=== PATIENT | female | born 1940 | race Caucasian/White ===

== ENCOUNTER 2020-08-29 10:13 | Emergency (ER) | payer OTHER ==
[2020-08-29 10:21] VITALS: BP 168/86; PULSE 60; TEMP 98.7; BMI 24.2
[2020-08-29] MEDS ORDERED: ACETAMINOPHEN 500 MG TABLET (FP) PO ONE (11:24)
[2020-08-29] MEDS ORDERED: ACETAMINOPHEN 325 MG TABLET (FP) ONE (11:50)
[2020-08-29 12:28] LABS: BASO % 0.4 % (0-2.0); EOS % 0.1 % (0-4.5); HEMATOCRIT 38.6 % (32.4-45.2); HEMOGLOBIN 13.3 GM/dL (10.7-15.3); LYMPH % 12.6 % (8-40); MCH 29.1 pg (25.7-33.7); MCHC 34.3 g/dl (32.0-36.0); MEAN CELL VOLUME 84.7 fl (80-96); MEAN PLT VOLUME 10.1 fl (7.5-11.1); MONO % 4.3 % (3.8-10.2); NEUT % 82.6 % (42.8-82.8); PLATELET COUNT 126 K/MM3 (134-434); RBC 4.56 M/mm3 (3.60-5.2); RDW 13.4 % (11.6-15.6); WHITE BLOOD COUNT 7.2 K/mm3 (4.0-10.0)
[2020-08-29 12:31] LABS: EPI CELLS 9 /uL (0-25.1); HYALINE CASTS 0 /uL (0-3.1); URINE APPEARANCE CLEAR; URINE BACTERIA 87 /uL (0-1359); URINE BILIRUBIN NEGATIVE (NEGATIVE); URINE COLOR YELLOW; URINE GLUCOSE (UA) NEGATIVE (NEGATIVE); URINE KETONE NEGATIVE (NEGATIVE); URINE LEUK ESTERASE TRACE (NEGATIVE); URINE NITRITE NEGATIVE (NEGATIVE); URINE PROTEIN NEGATIVE (NEGATIVE); URINE RBC 8 /uL (0-23.9); URINE UROBILINOGEN 0.2 mg/dL (0.2-1.0); URINE WBC 6 /uL (0-25.8)
[2020-08-29 12:55] LABS: CHLORIDE 100 mmol/L (98-107); SODIUM 134 mmol/L (136-145)
[2020-08-29 12:58] LABS: ANION GAP 9 MMOL/L (8-16); BLOOD UREA NITROGEN 21.4 mg/dL (7-18); CALCIUM 9.2 mg/dL (8.5-10.1); CO2 25 mmol/L (21-32)
[2020-08-29 12:59] LABS: ALBUMIN 4.2 g/dl (3.4-5.0); GLUCOSE,RANDOM 113 mg/dL (74-106); MAGNESIUM 1.8 mg/dL (1.8-2.4)
[2020-08-29 13:01] LABS: CREATININE 1.2 mg/dL (0.55-1.3)
[2020-08-29 13:02] LABS: SGOT/AST 31 U/L (15-37); SGPT/ALT 25 U/L (13-61)
[2020-08-29 13:03] LABS: TOT PROT 7.4 g/dl (6.4-8.2)
[2020-08-29 13:04] LABS: ALK PHOS 71 U/L (45-117)
[2020-08-29] MEDS ORDERED: SODIUM CHLORIDE 0.9% 500 ML INFUS.BAG IV ONE (13:32)
== END 2020-08-29 15:38 | disposition home or self-care (01) ==
LOC: JER 10:13
DX: R53.81 Other malaise (principal)
CPT/HCPCS: 36415; 71045-TC-FY; 80053; 81003; 82550; 82553; 82607; 82746; 83735; 84439; 84443; 84480; 84484; 85025; 87086; 93005; 93010; 99285-25; C9803; U0003; U0005

== ENCOUNTER 2021-10-03 12:50 | Emergency (ER) | payer OTHER ==
[2021-10-03] MEDS ORDERED: BEBTELOVIMAB (EUA) 175 MG/2 ML VIAL IVPUSH ONE (13:26)
[2021-10-03 14:48] VITALS: BMI 25.8
[2021-10-03 15:54] LABS: PROTHROMBIN TIME (PATIENT) 55.5 SEC (9.7-13.0)
[2021-10-03 16:52] LABS: INR 4.75 (0.83-1.09)
[2021-10-03 18:05] VITALS: BP 157/80; PULSE 77; TEMP 97.6
== END 2021-10-03 19:45 | disposition home or self-care (01) ==
LOC: JER 12:50
DX: U07.1 COVID-19 (principal)
CPT/HCPCS: 36415; 71046-TC-FY; 83880; 85610; 99284-25; M0222; Q0222

== ENCOUNTER 2023-09-27 18:01 | Inpatient (IN) | payer OTHER ==
[2023-09-27] MEDS ORDERED: KETOROLAC TROMETHAMINE 15 MG/ML VIAL ONE (19:52)
[2023-09-27] MEDS: KETOROLAC TROMETHAMINE 15 MG/ML VIAL IVPUSH ONE (19:54)
[2023-09-27 20:07] LABS: HEMATOCRIT 41.8 % (32.4-45.2); HEMOGLOBIN 14.2 GM/dL (10.7-15.3); MCH 29.2 pg (25.7-33.7); MCHC 34.1 g/dl (32.0-36.0); MEAN CELL VOLUME 85.6 fl (80-96); MEAN PLT VOLUME 8.7 fl (7.5-11.1); PLATELET COUNT 151 10^3/uL (134-434); RBC 4.88 M/mm3 (3.60-5.2); RDW 13.8 % (11.6-15.6); WHITE BLOOD COUNT 5.6 K/mm3 (4.0-10.0)
[2023-09-27 20:08] LABS: INR 3.74 (0.83-1.09); PROTHROMBIN TIME (PATIENT) 40.7 SEC (9.7-13.0)
[2023-09-27 20:11] LABS: ACTIVATED PTT 49.5 SECONDS (25.2-36.5)
[2023-09-27 20:17] LABS: CALCIUM 10.5 mg/dL (8.5-10.1); POTASSIUM 4.3 mmol/L (3.5-5.1)
[2023-09-27 20:18] LABS: BLOOD UREA NITROGEN 32.8 mg/dL (7-18)
[2023-09-27 20:27] LABS: CREATININE 1.5 mg/dL (0.55-1.3)
[2023-09-27 20:53] LABS: ERYTHROCYTE SEDIMENTATION RATE 50 mm/hr (0-30)
[2023-09-27] MEDS ORDERED: oxyCODONE HCL 5 MG TABLET ONE (21:32)
[2023-09-27] MEDS: oxyCODONE HCL 5 MG TABLET PO ONE (21:37)
[2023-09-27] MEDS ORDERED: DOCUSATE SODIUM 100 MG CAPSULE (FP) PO PRN (22:20)
[2023-09-28] MEDS: oxyCODONE HCL 5 MG TABLET PO PRN (03:19)
[2023-09-28] MEDS: ACETAMINOPHEN 1000 MG/100 ML BAG IVPB PRN (06:48)
[2023-09-28] MEDS: morphine SO4 SUSTAINED ACTING 30 MG TABLET.SA PO ONE (06:49)
[2023-09-28] MEDS: LEVOTHYROXINE NA 88 MCG TABLET (FP) PO SCH (06:50)
[2023-09-28 09:52] LABS: BASO % 0.4 % (0-2.0); EOS % 0.1 % (0-4.5); HEMATOCRIT 41.4 % (32.4-45.2); LYMPH % 16.1 % (8-40); MCHC 33.7 g/dl (32.0-36.0); MEAN PLT VOLUME 8.9 fl (7.5-11.1); NEUT % 66.4 % (42.8-82.8); PLATELET COUNT 154 10^3/uL (134-434); RBC 4.82 M/mm3 (3.60-5.2); RDW 13.7 % (11.6-15.6)
[2023-09-28] MEDS: FUROSEMIDE 20 MG TABLET (FP) PO SCH (09:55)
[2023-09-28] MEDS: PREGABALIN 100 MG CAPSULE PO SCH (09:55)
[2023-09-28] MEDS: VALSARTAN 160 MG TABLET PO SCH (09:55)
[2023-09-28] MEDS: amLODIPine BESYLATE 5 MG TABLET (FP) PO SCH (09:55)
[2023-09-28] MEDS ORDERED: morphine SO4 SUSTAINED ACTING 30 MG TABLET.SA PO SCH (10:00)
[2023-09-28 10:50] LABS: POTASSIUM 4.3 mmol/L (3.5-5.1)
[2023-09-28 10:53] LABS: ALBUMIN 3.4 g/dl (3.4-5.0); BLOOD UREA NITROGEN 31.4 mg/dL (7-18); CALCIUM 10.5 mg/dL (8.5-10.1)
[2023-09-28 10:56] LABS: CREATININE 1.4 mg/dL (0.55-1.3); PHOSPHOROUS 2.4 mg/dL (2.5-4.9)
[2023-09-28 10:57] LABS: BILIRUBIN,TOTAL 0.6 mg/dL (0.2-1); TOT PROT 6.6 g/dl (6.4-8.2)
[2023-09-28] MEDS: REMDESIVIR 200 MG in SODIUM CHLORIDE 250 ML IVPB ONE (17:47)
[2023-09-28 17:55] LABS: PH,URINE 5.5 (5.0-8.0); URINE APPEARANCE CLEAR; URINE BILIRUBIN NEGATIVE (NEGATIVE); URINE COLOR YELLOW; URINE GLUCOSE (UA) NEGATIVE (NEGATIVE); URINE KETONE TRACE (NEGATIVE); URINE LEUK ESTERASE NEGATIVE (NEGATIVE); URINE NITRITE NEGATIVE (NEGATIVE); URINE PROTEIN TRACE (NEGATIVE); URINE UROBILINOGEN 0.2 mg/dL (0.2-1.0)
[2023-09-28] MEDS: ATORVASTATIN CA 10 MG TABLET (FP) PO SCH (21:32)
[2023-09-28] MEDS: PRAMIPEXOLE DIHYDROCHLORIDE 0.5 MG TABLET PO SCH (21:32)
[2023-09-28] MEDS: morphine SO4 SUSTAINED ACTING 30 MG TABLET.SA PO SCH (21:33)
[2023-09-29] MEDS: LEVOTHYROXINE NA 100 MCG TABLET (FP) PO SCH (06:11)
[2023-09-29 10:34] LABS: PROTHROMBIN TIME (PATIENT) 46.5 SEC (9.7-13.0)
[2023-09-29 11:03] LABS: INR 4.29 (0.83-1.09)
[2023-09-29] MEDS: DEXAMETHASONE SOD PHOSPHATE 10 MG/1 ML VIAL IVPUSH SCH (15:21)
[2023-09-29] MEDS: REMDESIVIR 200 MG in SODIUM CHLORIDE 250 ML IVPB ONE (16:22)
[2023-09-29] MEDS: WARFARIN NA 2 MG TABLET PO SCH (17:22)
[2023-09-30 10:00] LABS: INR 1.97 (0.83-1.09); PROTHROMBIN TIME (PATIENT) 21.8 SEC (9.7-13.0)
[2023-09-30] MEDS: VALSARTAN 160 MG TABLET PO SCH (11:06)
[2023-09-30] MEDS: amLODIPine BESYLATE 5 MG TABLET (FP) PO SCH (11:07)
[2023-09-30] MEDS: REMDESIVIR 100 MG in SODIUM CHLORIDE 250 ML IVPB SCH (15:38)
[2023-10-01 08:40] LABS: INR 1.6 (0.83-1.09); PROTHROMBIN TIME (PATIENT) 17.8 SEC (9.7-13.0)
[2023-10-02 09:15] LABS: INR 1.74 (0.83-1.09); PROTHROMBIN TIME (PATIENT) 19.4 SEC (9.7-13.0)
[2023-10-03 10:24] LABS: INR 1.97 (0.83-1.09); PROTHROMBIN TIME (PATIENT) 22.2 SEC (9.7-13.0)
[2023-10-04 09:20] LABS: INR 2.55 (0.83-1.09)
[2023-10-04 10:25] LABS: ALBUMIN 2.9 g/dl (3.4-5.0); ANION GAP 5 mmol/L (4-13); BILIRUBIN,TOTAL 0.4 mg/dL (0.2-1); BLOOD UREA NITROGEN 73.1 mg/dL (7-18); CALCIUM 10.8 mg/dL (8.5-10.1); CHLORIDE 109 mmol/L (98-107); CO2 21 mmol/L (21-32); CREATININE 1.3 mg/dL (0.55-1.3); GLUCOSE,RANDOM 141 mg/dL (74-106); POTASSIUM 6.6 mmol/L (3.5-5.1); SGOT/AST 23 U/L (15-37); SGPT/ALT 38 U/L (13-61); SODIUM 136 mmol/L (136-145); TOT PROT 6.1 g/dl (6.4-8.2)
[2023-10-04 10:39] LABS: ALK PHOS 92 U/L (45-117)
[2023-10-04] MEDS: SODIUM ZIRCONIUM CYCLOSILICATE (LOKELMA) 5 GM PACKET PO SCH (12:12)
[2023-10-04 13:26] LABS: POTASSIUM 5.7 mmol/L (3.5-5.1)
[2023-10-04 13:27] LABS: BLOOD UREA NITROGEN 71.7 mg/dL (7-18); CALCIUM 11.2 mg/dL (8.5-10.1)
[2023-10-04 13:31] LABS: CREATININE 1.4 mg/dL (0.55-1.3)
[2023-10-05] MEDS: SODIUM CHLORIDE 0.45% 1,000 ML IV SCH ×2 (07:10→21:10)
[2023-10-05] MEDS: VALSARTAN 160 MG TABLET PO SCH (09:47)
[2023-10-05] MEDS: SODIUM ZIRCONIUM CYCLOSILICATE (LOKELMA) 5 GM PACKET PO SCH ×2 (09:48→21:12)
[2023-10-05 09:50] LABS: ALBUMIN 2.9 g/dl (3.4-5.0); BLOOD UREA NITROGEN 74.4 mg/dL (7-18); CALCIUM 10.9 mg/dL (8.5-10.1); POTASSIUM 5.9 mmol/L (3.5-5.1)
[2023-10-05 09:51] LABS: CREATININE 1.3 mg/dL (0.55-1.3)
[2023-10-05 09:55] LABS: BILIRUBIN,TOTAL 0.6 mg/dL (0.2-1)
[2023-10-05 13:24] LABS: POTASSIUM 5.8 mmol/L (3.5-5.1)
[2023-10-05 13:26] LABS: BLOOD UREA NITROGEN 71.5 mg/dL (7-18)
[2023-10-05 13:30] LABS: CREATININE 1.3 mg/dL (0.55-1.3)
[2023-10-06 10:43] LABS: BLOOD UREA NITROGEN 77.1 mg/dL (7-18); CALCIUM 10.4 mg/dL (8.5-10.1)
[2023-10-06 10:48] LABS: CREATININE 1.3 mg/dL (0.55-1.3)
[2023-10-06 12:14] LABS: INR 2.85 (0.83-1.09); PROTHROMBIN TIME (PATIENT) 31.2 SEC (9.7-13.0)
[2023-10-06 12:19] LABS: HEMATOCRIT 46.5 % (32.4-45.2); HEMOGLOBIN 15.3 GM/dL (10.7-15.3); MCH 28.2 pg (25.7-33.7); MEAN CELL VOLUME 85.5 fl (80-96); MEAN PLT VOLUME 8.5 fl (7.5-11.1); PLATELET COUNT 407 10^3/uL (134-434); RBC 5.44 M/mm3 (3.60-5.2); RDW 14.5 % (11.6-15.6); WHITE BLOOD COUNT 23.2 K/mm3 (4.0-10.0)
[2023-10-06] MEDS ORDERED: DOCUSATE SODIUM 100 MG CAPSULE (FP) PO PRN (13:16)
[2023-10-06] MEDS: SODIUM CHLORIDE 1,000 ML IV STA (14:42)
[2023-10-06] MEDS: DEXAMETHASONE SOD PHOSPHATE 10 MG/1 ML VIAL IVPUSH SCH (16:40)
[2023-10-06] MEDS: oxyCODONE HCL 5 MG TABLET PO PRN (16:41)
[2023-10-06] MEDS: CHLORHEXIDINE GLUCONATE 4% CLEANSER FOR DECOLONIZATION TP SCH (21:57)
[2023-10-06] MEDS: MUPIROCIN 2% TOPICAL OINTMENT FOR DECOLONIZATION NS SCH (21:57)
[2023-10-06] MEDS: PRAMIPEXOLE DIHYDROCHLORIDE 0.25 MG TABLET PO SCH (21:57)
[2023-10-06] MEDS: ATORVASTATIN CA 10 MG TABLET (FP) PO SCH (22:20)
[2023-10-06] MEDS: morphine SO4 SUSTAINED ACTING 15 MG TABLET.SA PO SCH (22:20)
[2023-10-07] MEDS: LEVOTHYROXINE NA 100 MCG TABLET (FP) PO SCH (06:30)
[2023-10-07 07:13] LABS: HEMATOCRIT 41.4 % (32.4-45.2); HEMOGLOBIN 13.5 GM/dL (10.7-15.3); MCH 28.3 pg (25.7-33.7); MCHC 32.7 g/dl (32.0-36.0); MEAN CELL VOLUME 86.5 fl (80-96); MEAN PLT VOLUME 8.3 fl (7.5-11.1); PLATELET COUNT 314 10^3/uL (134-434); RBC 4.78 M/mm3 (3.60-5.2); RDW 13.8 % (11.6-15.6)
[2023-10-07 07:15] LABS: INR 2.9 (0.83-1.09); PROTHROMBIN TIME (PATIENT) 31.8 SEC (9.7-13.0)
[2023-10-07 07:27] LABS: POTASSIUM 5.6 mmol/L (3.5-5.1)
[2023-10-07 07:31] LABS: CALCIUM 10.1 mg/dL (8.5-10.1)
[2023-10-07 07:33] LABS: ALBUMIN 2.9 g/dl (3.4-5.0); BLOOD UREA NITROGEN 90.1 mg/dL (7-18); MAGNESIUM 2.5 mg/dL (1.8-2.4)
[2023-10-07 07:34] LABS: PHOSPHOROUS 4.3 mg/dL (2.5-4.9)
[2023-10-07 07:35] LABS: CREATININE 1.6 mg/dL (0.55-1.3)
[2023-10-07 07:36] LABS: BILIRUBIN,TOTAL 0.7 mg/dL (0.2-1); TOT PROT 6.1 g/dl (6.4-8.2)
[2023-10-07] MEDS ORDERED: CALCIUM GLUCONATE 10% - 1,000 MG/10 ML VIAL ONE (08:12)
[2023-10-07] MEDS ORDERED: INSULIN REGULAR HUMAN 100 UNITS/ML *VIAL ONE (08:12)
[2023-10-07] MEDS ORDERED: DEXTROSE 50%-WATER 25 GM/50 ML DISP.SYRIN ONE (08:13)
[2023-10-07] MEDS: INSULIN REGULAR HUMAN 100 UNITS/ML *VIAL IVPUSH ONE (08:20)
[2023-10-07] MEDS: CALCIUM GLUCONATE 10% - 1,000 MG/10 ML VIAL IVPUSH ONE (08:20)
[2023-10-07] MEDS: DEXTROSE 50%-WATER 25 GM/50 ML DISP.SYRIN IVPUSH ONE (08:20)
[2023-10-07 08:58] LABS: ANISOCYTOSIS 0; HELMET CELLS 0; HOWELL-JOLLY BODIES 0; MACROCYTOSIS 0; OVALOCYTE 0; ROULEAU 0; SICKELED CELLS 0; TARGET CELLS 0; TEAR DROP CELLS 0; TOXIC GRANULATION 0
[2023-10-07] MEDS: SODIUM ZIRCONIUM CYCLOSILICATE (LOKELMA) 5 GM PACKET PO SCH (09:42)
[2023-10-07] MEDS: amLODIPine BESYLATE 5 MG TABLET (FP) PO SCH (09:44)
[2023-10-07] MEDS ORDERED: SODIUM ZIRCONIUM CYCLOSILICATE (LOKELMA) 5 GM PACKET PO SCH (10:00)
[2023-10-07] MEDS: POLYETHYLENE GLYCOL (HEALTHYLAX) 3350 17 GM PACKET PO SCH (12:07)
[2023-10-07 12:59] LABS: POTASSIUM 5.1 mmol/L (3.5-5.1)
[2023-10-07 13:01] LABS: ALBUMIN 2.6 g/dl (3.4-5.0); CALCIUM 10.8 mg/dL (8.5-10.1)
[2023-10-07 13:03] LABS: BLOOD UREA NITROGEN 87.6 mg/dL (7-18)
[2023-10-07 13:05] LABS: CREATININE 1.3 mg/dL (0.55-1.3)
[2023-10-07 13:06] LABS: BILIRUBIN,TOTAL 0.7 mg/dL (0.2-1); TOT PROT 5.7 g/dl (6.4-8.2)
[2023-10-07] MEDS: SENNOSIDES/DOCUSATE COMBO (SENNA PLUS) TABLET (UD) PO SCH (21:24)
[2023-10-08 08:21] LABS: BASO % 0.1 % (0-2.0); HEMATOCRIT 37.9 % (32.4-45.2); HEMOGLOBIN 12.9 GM/dL (10.7-15.3); LYMPH % 3.5 % (8-40); MCHC 34.1 g/dl (32.0-36.0); MEAN CELL VOLUME 84.9 fl (80-96); MEAN PLT VOLUME 8.7 fl (7.5-11.1); MONO % 10.4 % (3.8-10.2); PLATELET COUNT 305 10^3/uL (134-434); RBC 4.46 M/mm3 (3.60-5.2); RDW 14.3 % (11.6-15.6); WHITE BLOOD COUNT 13.7 K/mm3 (4.0-10.0)
[2023-10-08 09:13] LABS: POTASSIUM 5.2 mmol/L (3.5-5.1)
[2023-10-08 09:23] LABS: ALBUMIN 2.8 g/dl (3.4-5.0); BILIRUBIN,TOTAL 0.9 mg/dL (0.2-1); BLOOD UREA NITROGEN 95.5 mg/dL (7-18); CALCIUM 10.7 mg/dL (8.5-10.1); CREATININE 1.6 mg/dL (0.55-1.3); MAGNESIUM 2.6 mg/dL (1.8-2.4); PHOSPHOROUS 4.1 mg/dL (2.5-4.9); TOT PROT 5.7 g/dl (6.4-8.2)
[2023-10-09 07:08] LABS: POTASSIUM 4.9 mmol/L (3.5-5.1)
[2023-10-09 07:12] LABS: ALBUMIN 3.2 g/dl (3.4-5.0)
[2023-10-09 07:15] LABS: CREATININE 1.5 mg/dL (0.55-1.3)
[2023-10-09 07:16] LABS: TOT PROT 6.4 g/dl (6.4-8.2)
[2023-10-09 08:04] LABS: BASO % 0.2 % (0-2.0); HEMATOCRIT 40.9 % (32.4-45.2); HEMOGLOBIN 13.7 GM/dL (10.7-15.3); LYMPH % 3.2 % (8-40); MCH 28.8 pg (25.7-33.7); MCHC 33.5 g/dl (32.0-36.0); MEAN CELL VOLUME 86.2 fl (80-96); MEAN PLT VOLUME 9.1 fl (7.5-11.1); MONO % 8.3 % (3.8-10.2); NEUT % 88.3 % (42.8-82.8); PLATELET COUNT 325 10^3/uL (134-434); RBC 4.75 M/mm3 (3.60-5.2); RDW 14.3 % (11.6-15.6); WHITE BLOOD COUNT 13.8 K/mm3 (4.0-10.0)
[2023-10-09] MEDS: ENOXAPARIN NA (PORCINE) 80 MG/0.8 ML DISP.SYRIN SQ SCH ×2 (10:17→10:21)
[2023-10-09] MEDS ORDERED: PHYTONADIONE 10 MG/1 ML AMP ONE (14:28)
[2023-10-09] MEDS: PHYTONADIONE 10 MG/1 ML AMP IVPB STA (14:34)
[2023-10-09] MEDS: DESMOPRESSIN ACETATE 30 MCG in SODIUM CHLORIDE 50 ML IVPB ONE (15:27)
[2023-10-09 18:41] LABS: HEMATOCRIT 37.6 % (32.4-45.2); HEMOGLOBIN 12.3 GM/dL (10.7-15.3); MCH 28.6 pg (25.7-33.7); MCHC 32.7 g/dl (32.0-36.0); MEAN CELL VOLUME 87.5 fl (80-96); MEAN PLT VOLUME 9.8 fl (7.5-11.1); PLATELET COUNT 347 10^3/uL (134-434); RDW 14.1 % (11.6-15.6); WHITE BLOOD COUNT 29.9 K/mm3 (4.0-10.0)
[2023-10-09] MEDS: SODIUM CHLORIDE 500 ML IV STA (18:42)
[2023-10-09] MEDS ORDERED: ACETAMINOPHEN INJECTION 100 ML IVPB ONE (19:15)
[2023-10-09] MEDS ORDERED: HYDROmorphone HCl 2 MG/ML VIAL ONE (19:29)
[2023-10-09] MEDS: HYDROmorphone HCl 2 MG/ML VIAL IVPUSH STA (19:34)
[2023-10-09] MEDS: ACETAMINOPHEN 1000 MG/100 ML BAG IVPB STA (19:41)
[2023-10-09] MEDS ORDERED: ENOXAPARIN NA (PORCINE) 80 MG/0.8 ML DISP.SYRIN SQ SCH (22:00)
[2023-10-10] MEDS: HYDROmorphone HCl 2 MG/ML VIAL IVPUSH ONE (08:05)
[2023-10-10] MEDS: DEXMEDETOMIDINE PREMIX 400 MCG/100 ML BAG IVPB SCH (09:00)
[2023-10-10 09:02] LABS: HEMATOCRIT 34.3 % (32.4-45.2); HEMOGLOBIN 11.2 GM/dL (10.7-15.3); MCH 28.5 pg (25.7-33.7); MCHC 32.7 g/dl (32.0-36.0); MEAN CELL VOLUME 87.3 fl (80-96); MEAN PLT VOLUME 9.9 fl (7.5-11.1); PLATELET COUNT 282 10^3/uL (134-434); RBC 3.93 M/mm3 (3.60-5.2); RDW 13.9 % (11.6-15.6); WHITE BLOOD COUNT 25.9 K/mm3 (4.0-10.0)
[2023-10-10 09:06] LABS: INR 1.16 (0.83-1.09)
[2023-10-10 09:17] LABS: CHLORIDE 112 mmol/L (98-107); SODIUM 143 mmol/L (136-145)
[2023-10-10 09:20] LABS: ALBUMIN 2.7 g/dl (3.4-5.0); MAGNESIUM 2.8 mg/dL (1.8-2.4)
[2023-10-10 09:21] LABS: CALCIUM 10.5 mg/dL (8.5-10.1)
[2023-10-10 09:22] LABS: ANION GAP 12 mmol/L (4-13); CO2 19 mmol/L (21-32)
[2023-10-10 09:23] LABS: CREATININE 2.2 mg/dL (0.55-1.3); GLUCOSE,RANDOM 194 mg/dL (74-106); PHOSPHOROUS 4.2 mg/dL (2.5-4.9); SGOT/AST 36 U/L (15-37); SGPT/ALT 33 U/L (13-61)
[2023-10-10 09:24] LABS: BILIRUBIN,TOTAL 1.3 mg/dL (0.2-1); TOT PROT 5.6 g/dl (6.4-8.2)
[2023-10-10 09:25] LABS: BLOOD UREA NITROGEN 130.4 mg/dL (7-18)
[2023-10-10 09:26] LABS: ALK PHOS 66 U/L (45-117)
[2023-10-10 10:10] LABS: ANISOCYTOSIS 0; HELMET CELLS 0; HOWELL-JOLLY BODIES 0; MACROCYTOSIS 0; OVALOCYTE 0; ROULEAU 0; SICKELED CELLS 0; TARGET CELLS 0; TEAR DROP CELLS 0; TOXIC GRANULATION 0
[2023-10-10] MEDS: SODIUM CHLORIDE 500 ML IV STA (12:24)
[2023-10-10] MEDS: SODIUM CHLORIDE 1,000 ML IV SCH (12:25)
[2023-10-10] MEDS: PIPERACILLIN/TAZOB 3.375 GM 3.375 GM in DEXTROSE 5%-WATER - 50 ML IVPB SCH (13:01)
[2023-10-10] MEDS: MELATONIN 5 MG TABLETS PO SCH (21:31)
[2023-10-10] MEDS: DOPAMINE 400 MG/D5W - 400,000 MCG/250 ML INFUS.BAG IVPB SCH (21:32)
[2023-10-10] MEDS: oxyCODONE HCL 5 MG TABLET PO STA (22:04)
[2023-10-11 08:06] LABS: HEMATOCRIT 29.1 % (32.4-45.2); HEMOGLOBIN 9.5 GM/dL (10.7-15.3); MCH 28.3 pg (25.7-33.7); MCHC 32.7 g/dl (32.0-36.0); MEAN CELL VOLUME 86.6 fl (80-96); PLATELET COUNT 193 10^3/uL (134-434); RBC 3.36 M/mm3 (3.60-5.2); WHITE BLOOD COUNT 20.1 K/mm3 (4.0-10.0)
[2023-10-11 08:13] LABS: EPI CELLS 2 /uL (0-25.1); HYALINE CASTS 1 /uL (0-3.1); URINE APPEARANCE CLEAR; URINE BACTERIA 0 /uL (0-1359); URINE BILIRUBIN NEGATIVE (NEGATIVE); URINE COLOR YELLOW; URINE GLUCOSE (UA) NEGATIVE (NEGATIVE); URINE KETONE NEGATIVE (NEGATIVE); URINE LEUK ESTERASE 1+ (NEGATIVE); URINE NITRITE NEGATIVE (NEGATIVE); URINE PROTEIN NEGATIVE (NEGATIVE); URINE RBC 34 /uL (0-23.9); URINE UROBILINOGEN 0.2 mg/dL (0.2-1.0); URINE WBC 97 /uL (0-25.8)
[2023-10-11 08:18] LABS: INR 1.01 (0.83-1.09); PROTHROMBIN TIME (PATIENT) 11.6 SEC (9.7-13.0)
[2023-10-11 08:20] LABS: CHLORIDE 121 mmol/L (98-107); POTASSIUM 3.7 mmol/L (3.5-5.1); SODIUM 149 mmol/L (136-145)
[2023-10-11 08:28] LABS: ACTIVATED PTT 16.6 SECONDS (25.2-36.5); ALBUMIN 2.5 g/dl (3.4-5.0); ANION GAP 6 mmol/L (4-13); CALCIUM 10.6 mg/dL (8.5-10.1); CO2 22 mmol/L (21-32); GLUCOSE,RANDOM 124 mg/dL (74-106); MAGNESIUM 2.5 mg/dL (1.8-2.4)
[2023-10-11 08:31] LABS: SGPT/ALT 32 U/L (13-61)
[2023-10-11 08:32] LABS: PHOSPHOROUS 3.3 mg/dL (2.5-4.9); SGOT/AST 33 U/L (15-37)
[2023-10-11 08:33] LABS: BILIRUBIN,TOTAL 1.4 mg/dL (0.2-1); TOT PROT 4.8 g/dl (6.4-8.2)
[2023-10-11 08:34] LABS: ALK PHOS 57 U/L (45-117)
[2023-10-11 08:42] LABS: BLOOD UREA NITROGEN 106.4 mg/dL (7-18)
[2023-10-11 10:17] LABS: ANISOCYTOSIS 1+; MACROCYTOSIS 0
[2023-10-11 10:21] LABS: PLATELET ESTIMATE ADEQUATE
[2023-10-11] MEDS ORDERED: ACETAMINOPHEN 1000 MG/100 ML BAG IVPB PRN ×2 (13:16→18:04)
[2023-10-11] MEDS ORDERED: hydrOXYzine HCL 100 MG/2 ML VIAL IM PRN (13:31)
[2023-10-11] MEDS: SODIUM CHLORIDE 0.45% 1,000 ML IV SCH ×2 (15:11→19:53)
[2023-10-11 15:47] VITALS: BMI 26.6
[2023-10-11] MEDS: morphine SULFATE 4 MG/ML VIAL IVPUSH PRN (16:48)
[2023-10-11] MEDS ORDERED: DOCUSATE SODIUM 100 MG CAPSULE (FP) PO PRN (18:04)
[2023-10-11] MEDS: PIPERACILLIN/TAZOB 3.375 GM 3.375 GM in DEXTROSE 5%-WATER - 50 ML IVPB SCH (19:54)
[2023-10-11] MEDS: hydrOXYzine HCL 100 MG/2 ML VIAL IM PRN (21:04)
[2023-10-11] MEDS ORDERED: CHLORHEXIDINE GLUCONATE 4% CLEANSER FOR DECOLONIZATION TP SCH (22:00)
[2023-10-11] MEDS: MELATONIN 5 MG TABLETS PO SCH (22:31)
[2023-10-11] MEDS: morphine SO4 SUSTAINED ACTING 30 MG TABLET.SA PO SCH (22:31)
[2023-10-11] MEDS: ATORVASTATIN CA 10 MG TABLET (FP) PO SCH (22:31)
[2023-10-11] MEDS: PRAMIPEXOLE DIHYDROCHLORIDE 0.25 MG TABLET PO SCH (22:31)
[2023-10-12] MEDS: LEVOTHYROXINE NA 100 MCG TABLET (FP) PO SCH (06:54)
[2023-10-12 09:07] LABS: BASO % 0.2 % (0-2.0); HEMATOCRIT 25.6 % (32.4-45.2); HEMOGLOBIN 8.5 GM/dL (10.7-15.3); LYMPH % 3.3 % (8-40); MCH 28.9 pg (25.7-33.7); MCHC 33.4 g/dl (32.0-36.0); MEAN CELL VOLUME 86.6 fl (80-96); MEAN PLT VOLUME 9.7 fl (7.5-11.1); MONO % 8.5 % (3.8-10.2); PLATELET COUNT 174 10^3/uL (134-434); RBC 2.95 M/mm3 (3.60-5.2); WHITE BLOOD COUNT 16.9 K/mm3 (4.0-10.0)
[2023-10-12 09:31] LABS: ALBUMIN 2.4 g/dl (3.4-5.0); CALCIUM 9.8 mg/dL (8.5-10.1); MAGNESIUM 2.1 mg/dL (1.8-2.4)
[2023-10-12 09:34] LABS: BLOOD UREA NITROGEN 66.5 mg/dL (7-18); CREATININE 1.5 mg/dL (0.55-1.3); PHOSPHOROUS 2.1 mg/dL (2.5-4.9)
[2023-10-12 09:36] LABS: BILIRUBIN,TOTAL 1.4 mg/dL (0.2-1); TOT PROT 4.5 g/dl (6.4-8.2)
[2023-10-12] MEDS: POLYETHYLENE GLYCOL (HEALTHYLAX) 3350 17 GM PACKET PO SCH (10:01)
[2023-10-12] MEDS: amLODIPine BESYLATE 5 MG TABLET (FP) PO SCH (10:01)
[2023-10-12] MEDS ORDERED: morphine SULFATE IMMEDIATE RELEASE 30 MG TAB PO PRN ×2 (10:06→13:09)
[2023-10-12] MEDS: diazePAM CARPU-JECT 10 MG/2 ML DISP.SYRIN IVPUSH ONE (10:08)
[2023-10-12] MEDS: KCL 10 MEQ IVPB 10 MEQ/100 ML INFUS.BAG IVPB SCH (12:32)
[2023-10-12] MEDS: PIPERACILLIN/TAZOB 3.375 GM 3.375 GM in DEXTROSE 5%-WATER - 50 ML IVPB SCH (13:53)
[2023-10-12] MEDS: AMINO ACIDS 4.25%/D5W 1,000 ML IV SCH (14:06)
[2023-10-12] MEDS: D5-1/2NS+40 MEQ KCL - 40 MEQ/1,000 ML INFUS.BAG IV SCH (14:32)
[2023-10-12] MEDS: IRON SUCROSE INJECTION 200 MG in SODIUM CHLORIDE 100 ML IVPB ONE (15:17)
[2023-10-12] MEDS: THIAMINE HCL 200 MG/2 ML VIAL IVPB SCH (15:22)
[2023-10-12] MEDS: OXYMETAZOLINE 0.05% NASAL SOLUTION 15 ML BOTTLE NS ONE (17:22)
[2023-10-12] MEDS: diazePAM 2 MG TABLET PO PRN (23:04)
[2023-10-12] MEDS: busPIRone HCL 5 MG TABLET PO SCH (23:06)
[2023-10-13] MEDS: diazePAM CARPU-JECT 10 MG/2 ML DISP.SYRIN IVPUSH ONE (02:03)
[2023-10-13 03:00] LABS: HEMATOCRIT 26.9 % (32.4-45.2); HEMOGLOBIN 8.9 GM/dL (10.7-15.3); MCH 28.5 pg (25.7-33.7); MCHC 33.2 g/dl (32.0-36.0); MEAN CELL VOLUME 85.9 fl (80-96); MEAN PLT VOLUME 9.3 fl (7.5-11.1); PLATELET COUNT 186 10^3/uL (134-434); RBC 3.13 M/mm3 (3.60-5.2); RDW 14.3 % (11.6-15.6); WHITE BLOOD COUNT 17.6 K/mm3 (4.0-10.0)
[2023-10-13 06:23] LABS: ANISOCYTOSIS 3+; MACROCYTOSIS 0
[2023-10-13] MEDS: ENOXAPARIN NA (PORCINE) 80 MG/0.8 ML DISP.SYRIN SQ SCH (07:28)
[2023-10-13 08:09] LABS: HEMATOCRIT 26.2 % (32.4-45.2); HEMOGLOBIN 8.7 GM/dL (10.7-15.3); MCH 28.7 pg (25.7-33.7); MCHC 33.1 g/dl (32.0-36.0); MEAN CELL VOLUME 86.7 fl (80-96); MEAN PLT VOLUME 9.6 fl (7.5-11.1); PLATELET COUNT 183 10^3/uL (134-434); RBC 3.02 M/mm3 (3.60-5.2); RDW 13.9 % (11.6-15.6); WHITE BLOOD COUNT 18.9 K/mm3 (4.0-10.0)
[2023-10-13 08:25] LABS: CHLORIDE 120 mmol/L (98-107); POTASSIUM 3.1 mmol/L (3.5-5.1); SODIUM 148 mmol/L (136-145)
[2023-10-13 08:38] LABS: ALBUMIN 2.3 g/dl (3.4-5.0); ANION GAP 5 mmol/L (4-13); BLOOD UREA NITROGEN 49.3 mg/dL (7-18); CALCIUM 9.5 mg/dL (8.5-10.1); CO2 23 mmol/L (21-32); GLUCOSE,RANDOM 189 mg/dL (74-106); MAGNESIUM 1.8 mg/dL (1.8-2.4)
[2023-10-13 08:41] LABS: CREATININE 1.1 mg/dL (0.55-1.3); SGOT/AST 29 U/L (15-37); SGPT/ALT 28 U/L (13-61)
[2023-10-13 08:42] LABS: PHOSPHOROUS 0.9 mg/dL (2.5-4.9)
[2023-10-13 08:43] LABS: BILIRUBIN,TOTAL 1.1 mg/dL (0.2-1); TOT PROT 4.8 g/dl (6.4-8.2)
[2023-10-13 08:44] LABS: ALK PHOS 59 U/L (45-117)
[2023-10-13 09:32] LABS: PLATELET ESTIMATE ADEQUATE
[2023-10-13] MEDS: PANTOPRAZOLE SODIUM 40 MG VIAL IVPUSH SCH (12:01)
[2023-10-13 12:21] LABS: BASO % 0.1 % (0-2.0); EOS % 0.1 % (0-4.5); HEMOGLOBIN 7.9 GM/dL (10.7-15.3); LYMPH % 3.4 % (8-40); MCH 28.7 pg (25.7-33.7); MCH 28.9 pg (25.7-33.7); MCHC 32.8 g/dl (32.0-36.0); MEAN CELL VOLUME 87.4 fl (80-96); MEAN CELL VOLUME 87.9 fl (80-96); MEAN PLT VOLUME 9.5 fl (7.5-11.1); MEAN PLT VOLUME 9.6 fl (7.5-11.1); MONO % 9.5 % (3.8-10.2); NEUT % 86.9 % (42.8-82.8); PLATELET COUNT 158 10^3/uL (134-434); PLATELET COUNT 171 10^3/uL (134-434); RBC 2.73 M/mm3 (3.60-5.2); RBC 2.75 M/mm3 (3.60-5.2); WHITE BLOOD COUNT 18.2 K/mm3 (4.0-10.0); WHITE BLOOD COUNT 18.8 K/mm3 (4.0-10.0)
[2023-10-13 12:29] LABS: INR 1.08 (0.83-1.09); PROTHROMBIN TIME (PATIENT) 12.4 SEC (9.7-13.0)
[2023-10-13] MEDS ORDERED: hydrOXYzine HCL 100 MG/2 ML VIAL IM PRN (12:30)
[2023-10-13] MEDS ORDERED: diazePAM 2 MG TABLET PO PRN (12:30)
[2023-10-13] MEDS ORDERED: morphine SULFATE 4 MG/ML VIAL IVPUSH PRN (12:30)
[2023-10-13] MEDS ORDERED: AMINO ACIDS 4.25%/D5W 1,000 ML IV SCH (14:00)
[2023-10-13] MEDS: morphine SULFATE 4 MG/ML VIAL IVPUSH PRN (14:18)
[2023-10-13] MEDS: POTASSIUM PHOSPHATE 45 MM in SODIUM CHLORIDE 500 ML IVPB ONE (15:58)
[2023-10-13] MEDS: POTASSIUM CHLORIDE 10 MEQ in AMINO ACIDS 4.25%/D5W 1,000 ML IV SCH (15:58)
[2023-10-13] MEDS: PIPERACILLIN/TAZOB 3.375 GM 3.375 GM in DEXTROSE 5%-WATER - 50 ML IVPB SCH ×2 (16:02→19:18)
[2023-10-13] MEDS ORDERED: PIPERACILLIN/TAZOB 3.375 GM 3.375 GM in DEXTROSE 5%-WATER - 50 ML IVPB SCH (18:00)
[2023-10-13] MEDS ORDERED: WARFARIN NA 2 MG TABLET PO SCH (18:00)
[2023-10-13] MEDS: diazePAM 2 MG TABLET PO PRN (18:01)
[2023-10-13] MEDS: POTASSIUM CHLORIDE ORAL LIQUID 20 MEQ/15 ML PO ONE ×2 (19:20→19:21)
[2023-10-13] MEDS: AMINO ACIDS 4.25%/D5W 1,000 ML IV SCH (19:21)
[2023-10-13] MEDS: POTASSIUM PHOSPHATE 45 MM in SODIUM CHLORIDE 250 ML IVPB ONE (19:21)
[2023-10-13] MEDS: MUPIROCIN 2% TOPICAL OINTMENT FOR DECOLONIZATION NS SCH (19:21)
[2023-10-13 20:27] LABS: HEMATOCRIT 25.5 % (32.4-45.2); HEMOGLOBIN 8.6 GM/dL (10.7-15.3); MCH 29.2 pg (25.7-33.7); MCHC 33.9 g/dl (32.0-36.0); MEAN CELL VOLUME 86.3 fl (80-96); MEAN PLT VOLUME 9.5 fl (7.5-11.1); PLATELET COUNT 144 10^3/uL (134-434); RBC 2.95 M/mm3 (3.60-5.2); RDW 14.3 % (11.6-15.6); WHITE BLOOD COUNT 15.4 K/mm3 (4.0-10.0)
[2023-10-13 20:37] LABS: ALBUMIN 1.9 g/dl (3.4-5.0); CALCIUM 9.1 mg/dL (8.5-10.1)
[2023-10-13 20:38] LABS: BLOOD UREA NITROGEN 42.1 mg/dL (7-18)
[2023-10-13 20:42] LABS: BILIRUBIN,TOTAL 1.2 mg/dL (0.2-1)
[2023-10-13] MEDS: ATORVASTATIN CA 10 MG TABLET (FP) PO SCH (21:12)
[2023-10-13] MEDS: ACETAMINOPHEN 1000 MG/100 ML BAG IVPB PRN (21:12)
[2023-10-13 21:23] LABS: OVALOCYTE 1+
[2023-10-13 21:28] LABS: PLATELET ESTIMATE ADEQUATE
[2023-10-13] MEDS ORDERED: CHLORHEXIDINE GLUCONATE 4% CLEANSER FOR DECOLONIZATION TP SCH (22:00)
[2023-10-13] MEDS ORDERED: busPIRone HCL 5 MG TABLET PO SCH (22:00)
[2023-10-13] MEDS ORDERED: PRAMIPEXOLE DIHYDROCHLORIDE 0.25 MG TABLET PO SCH (22:00)
[2023-10-13] MEDS ORDERED: MELATONIN 5 MG TABLETS PO SCH (22:00)
[2023-10-13] MEDS ORDERED: ATORVASTATIN CA 10 MG TABLET (FP) PO SCH (22:00)
[2023-10-14 01:46] LABS: HEMATOCRIT 25.1 % (32.4-45.2); HEMOGLOBIN 8.6 GM/dL (10.7-15.3); MCH 29.4 pg (25.7-33.7); MCHC 34.2 g/dl (32.0-36.0); MEAN CELL VOLUME 86.1 fl (80-96); MEAN PLT VOLUME 9.5 fl (7.5-11.1); PLATELET COUNT 137 10^3/uL (134-434); RBC 2.92 M/mm3 (3.60-5.2); WHITE BLOOD COUNT 16.2 K/mm3 (4.0-10.0)
[2023-10-14 06:01] LABS: ANISOCYTOSIS 3+; ROULEAU 1+
[2023-10-14 06:18] LABS: HEMATOCRIT 24.6 % (32.4-45.2); HEMOGLOBIN 8.3 GM/dL (10.7-15.3); MCH 29.3 pg (25.7-33.7); MCHC 33.6 g/dl (32.0-36.0); MEAN CELL VOLUME 87.5 fl (80-96); MEAN PLT VOLUME 9.6 fl (7.5-11.1); PLATELET COUNT 141 10^3/uL (134-434); RBC 2.81 M/mm3 (3.60-5.2); RDW 14.1 % (11.6-15.6); WHITE BLOOD COUNT 16.6 K/mm3 (4.0-10.0)
[2023-10-14] MEDS ORDERED: LEVOTHYROXINE NA 100 MCG TABLET (FP) PO SCH (07:00)
[2023-10-14] MEDS ORDERED: LEVOTHYROXINE NA 88 MCG TABLET (FP) PO SCH (07:00)
[2023-10-14] MEDS: LEVOTHYROXINE NA 88 MCG TABLET (FP) PO SCH (07:21)
[2023-10-14] MEDS ORDERED: diazePAM CARPU-JECT 10 MG/2 ML DISP.SYRIN IVPUSH PRN (07:50)
[2023-10-14] MEDS ORDERED: OXYMETAZOLINE 0.05% NASAL SOLUTION 15 ML BOTTLE NS PRN (08:10)
[2023-10-14 09:48] LABS: POTASSIUM 3.2 mmol/L (3.5-5.1)
[2023-10-14 09:49] LABS: CALCIUM 8.9 mg/dL (8.5-10.1)
[2023-10-14 09:50] LABS: MAGNESIUM 1.8 mg/dL (1.8-2.4)
[2023-10-14 09:51] LABS: BLOOD UREA NITROGEN 38.2 mg/dL (7-18)
[2023-10-14 09:53] LABS: CREATININE 1.1 mg/dL (0.55-1.3); PHOSPHOROUS 1.6 mg/dL (2.5-4.9)
[2023-10-14] MEDS ORDERED: amLODIPine BESYLATE 5 MG TABLET (FP) PO SCH (10:00)
[2023-10-14] MEDS ORDERED: THIAMINE HCL 200 MG/2 ML VIAL IVPB SCH (10:00)
[2023-10-14] MEDS ORDERED: POLYETHYLENE GLYCOL (HEALTHYLAX) 3350 17 GM PACKET PO SCH (10:00)
[2023-10-14 10:20] LABS: ANISOCYTOSIS 0; HELMET CELLS 0; HOWELL-JOLLY BODIES 0; MACROCYTOSIS 0; OVALOCYTE 0; ROULEAU 0; SICKELED CELLS 0; TARGET CELLS 0; TEAR DROP CELLS 0; TOXIC GRANULATION 0
[2023-10-14] MEDS ORDERED: HEPARIN NA (PORCINE) 5,000 UNITS/ML 1ML VIAL IVPUSH PRN ×2 (10:54)
[2023-10-14] MEDS: THIAMINE HCL 200 MG/2 ML VIAL IVPB SCH (10:55)
[2023-10-14] MEDS: KCL 10 MEQ IVPB 10 MEQ/100 ML INFUS.BAG IVPB SCH (10:56)
[2023-10-14] MEDS ORDERED: HEPARIN SOD,PORK IN 0.45% NACL 25,000 UNITS/500 ML INFUS.BAG IVPB SCH (11:45)
[2023-10-14] MEDS: ENOXAPARIN NA (PORCINE) 80 MG/0.8 ML DISP.SYRIN SQ SCH (12:18)
[2023-10-14 14:31] LABS: INR 1.05 (0.83-1.09); PROTHROMBIN TIME (PATIENT) 11.9 SEC (9.7-13.0)
[2023-10-14 14:34] LABS: ACTIVATED PTT 21.3 SECONDS (25.2-36.5)
[2023-10-14 14:45] LABS: HEMATOCRIT 22.9 % (32.4-45.2); HEMOGLOBIN 7.7 GM/dL (10.7-15.3); MCH 29.1 pg (25.7-33.7); MCHC 33.7 g/dl (32.0-36.0); MEAN CELL VOLUME 86.2 fl (80-96); MEAN PLT VOLUME 9.8 fl (7.5-11.1); PLATELET COUNT 140 10^3/uL (134-434); RBC 2.66 M/mm3 (3.60-5.2); RDW 14.1 % (11.6-15.6); WHITE BLOOD COUNT 14.3 K/mm3 (4.0-10.0)
[2023-10-14] MEDS: amLODIPine BESYLATE 5 MG TABLET (FP) PO SCH (15:05)
[2023-10-14 15:21] LABS: ANISOCYTOSIS 0; HELMET CELLS 0; HOWELL-JOLLY BODIES 0; MACROCYTOSIS 0; OVALOCYTE 0; ROULEAU 0; SICKELED CELLS 0; TARGET CELLS 0; TEAR DROP CELLS 0; TOXIC GRANULATION 0
[2023-10-14] MEDS: POTASSIUM PHOSPHATE 30 MM in SODIUM CHLORIDE 250 ML IVPB ONE (15:56)
[2023-10-14] MEDS: POLYETHYLENE GLYCOL (HEALTHYLAX) 3350 17 GM PACKET PO SCH (21:06)
[2023-10-14] MEDS: PIPERACILLIN/TAZOB 3.375 GM 3.375 GM in DEXTROSE 5%-WATER - 50 ML IVPB SCH (22:48)
[2023-10-14 23:07] LABS: HEMATOCRIT 26.7 % (32.4-45.2); HEMOGLOBIN 9.1 GM/dL (10.7-15.3); MCH 29.4 pg (25.7-33.7); MEAN CELL VOLUME 86.4 fl (80-96); MEAN PLT VOLUME 9.1 fl (7.5-11.1); PLATELET COUNT 125 10^3/uL (134-434); RBC 3.09 M/mm3 (3.60-5.2); WHITE BLOOD COUNT 14.7 K/mm3 (4.0-10.0)
[2023-10-14 23:47] LABS: ANISOCYTOSIS 0; MACROCYTOSIS 1+; OVALOCYTE 1+
[2023-10-15 06:36] LABS: HEMATOCRIT 27.2 % (32.4-45.2); HEMOGLOBIN 9.4 GM/dL (10.7-15.3); MCHC 34.7 g/dl (32.0-36.0); MEAN CELL VOLUME 86.3 fl (80-96); MEAN PLT VOLUME 9.5 fl (7.5-11.1); PLATELET COUNT 135 10^3/uL (134-434); RBC 3.15 M/mm3 (3.60-5.2); RDW 13.6 % (11.6-15.6)
[2023-10-15 06:55] LABS: CHLORIDE 115 mmol/L (98-107); POTASSIUM 3.3 mmol/L (3.5-5.1); SODIUM 145 mmol/L (136-145)
[2023-10-15 07:00] LABS: CALCIUM 8.7 mg/dL (8.5-10.1); GLUCOSE,RANDOM 146 mg/dL (74-106)
[2023-10-15 07:01] LABS: ALBUMIN 2.1 g/dl (3.4-5.0); ANION GAP 8 mmol/L (4-13); BLOOD UREA NITROGEN 29.9 mg/dL (7-18); CO2 23 mmol/L (21-32); MAGNESIUM 1.4 mg/dL (1.8-2.4)
[2023-10-15 07:03] LABS: CREATININE 0.9 mg/dL (0.55-1.3); SGPT/ALT 26 U/L (13-61)
[2023-10-15 07:04] LABS: SGOT/AST 35 U/L (15-37)
[2023-10-15 07:05] LABS: BILIRUBIN,TOTAL 1.3 mg/dL (0.2-1); TOT PROT 4.4 g/dl (6.4-8.2)
[2023-10-15 07:06] LABS: ALK PHOS 61 U/L (45-117)
[2023-10-15 07:16] LABS: PHOSPHOROUS 0.9 mg/dL (2.5-4.9)
[2023-10-15] MEDS: MAGNESIUM SULFATE IN WATER 2 GM/50 ML IVPB IVPB ONE (08:57)
[2023-10-15] MEDS ORDERED: HEPARIN NA (PORCINE) 5,000 UNITS/ML 1ML VIAL IVPUSH PRN (08:58)
[2023-10-15] MEDS: diazePAM CARPU-JECT 10 MG/2 ML DISP.SYRIN IVPUSH PRN (09:27)
[2023-10-15] MEDS: POTASSIUM PHOSPHATE 30 MM in SODIUM CHLORIDE 250 ML IVPB ONE ×2 (09:28→21:42)
[2023-10-15] MEDS: HEPARIN SOD,PORK IN 0.45% NACL 25,000 UNITS/500 ML INFUS.BAG IVPB SCH (10:37)
[2023-10-15 10:44] LABS: ANISOCYTOSIS 0; MACROCYTOSIS 0
[2023-10-15 10:47] LABS: PLATELET ESTIMATE ADEQUATE
[2023-10-15] MEDS: MAGNESIUM SULF 50% (8.12 MEQ/2 ML-1 GM VIAL) IVPB ONE (11:21)
[2023-10-15 17:46] LABS: HEMATOCRIT 27.1 % (32.4-45.2); HEMOGLOBIN 9.4 GM/dL (10.7-15.3); MCHC 34.5 g/dl (32.0-36.0); MEAN CELL VOLUME 86.9 fl (80-96); MEAN PLT VOLUME 9.1 fl (7.5-11.1); PLATELET COUNT 132 10^3/uL (134-434); RBC 3.12 M/mm3 (3.60-5.2); RDW 13.9 % (11.6-15.6); WHITE BLOOD COUNT 18.8 K/mm3 (4.0-10.0)
[2023-10-15 18:12] LABS: POTASSIUM 3.5 mmol/L (3.5-5.1)
[2023-10-15 18:14] LABS: CALCIUM 8.7 mg/dL (8.5-10.1)
[2023-10-15 18:15] LABS: ALBUMIN 2.1 g/dl (3.4-5.0); BLOOD UREA NITROGEN 28.8 mg/dL (7-18); MAGNESIUM 1.9 mg/dL (1.8-2.4)
[2023-10-15 18:18] LABS: CREATININE 0.9 mg/dL (0.55-1.3); PHOSPHOROUS 1.5 mg/dL (2.5-4.9)
[2023-10-15 18:19] LABS: TOT PROT 4.4 g/dl (6.4-8.2)
[2023-10-15] MEDS: HEPARIN NA (PORCINE) 5,000 UNITS/ML 1ML VIAL IVPUSH PRN (18:27)
[2023-10-15 19:31] LABS: ANISOCYTOSIS 1+; MACROCYTOSIS 1+; OVALOCYTE 1+
[2023-10-15 19:36] LABS: PLATELET ESTIMATE SLT DECREASE
[2023-10-15] MEDS: ACETAMINOPHEN 1000 MG/100 ML BAG IVPB PRN (22:03)
[2023-10-16 07:43] LABS: HEMATOCRIT 27.7 % (32.4-45.2); HEMOGLOBIN 9.5 GM/dL (10.7-15.3); MCH 30.3 pg (25.7-33.7); MCHC 34.3 g/dl (32.0-36.0); MEAN CELL VOLUME 88.3 fl (80-96); MEAN PLT VOLUME 9.3 fl (7.5-11.1); PLATELET COUNT 134 10^3/uL (134-434); RBC 3.13 M/mm3 (3.60-5.2); RDW 14.4 % (11.6-15.6)
[2023-10-16 08:19] LABS: MAGNESIUM 1.6 mg/dL (1.8-2.4)
[2023-10-16 08:21] LABS: PHOSPHOROUS 2.3 mg/dL (2.5-4.9)
[2023-10-16 09:37] LABS: ALBUMIN 2.2 g/dl (3.4-5.0); BLOOD UREA NITROGEN 24.4 mg/dL (7-18); CALCIUM 8.7 mg/dL (8.5-10.1)
[2023-10-16 09:40] LABS: CREATININE 0.8 mg/dL (0.55-1.3)
[2023-10-16 09:42] LABS: TOT PROT 4.5 g/dl (6.4-8.2)
[2023-10-16] MEDS: MAGNESIUM SULFATE IN WATER 2 GM/50 ML IVPB IVPB ONE (10:13)
[2023-10-16] MEDS: NAPH,MB-DB/K PH,MBDB POWDER PACKET PO SCH (14:10)
[2023-10-17 07:24] LABS: HEMATOCRIT 29.7 % (32.4-45.2); HEMOGLOBIN 10.1 GM/dL (10.7-15.3); MCHC 34.1 g/dl (32.0-36.0); MEAN PLT VOLUME 9.4 fl (7.5-11.1); PLATELET COUNT 138 10^3/uL (134-434); RBC 3.37 M/mm3 (3.60-5.2); RDW 14.8 % (11.6-15.6); RETICULOCYTES 4.81 % (0.5-1.5); WHITE BLOOD COUNT 17.9 K/mm3 (4.0-10.0)
[2023-10-17 07:43] LABS: POTASSIUM 4.3 mmol/L (3.5-5.1)
[2023-10-17 07:55] LABS: ALBUMIN 2.3 g/dl (3.4-5.0); BLOOD UREA NITROGEN 20.8 mg/dL (7-18); CALCIUM 8.6 mg/dL (8.5-10.1); MAGNESIUM 1.9 mg/dL (1.8-2.4)
[2023-10-17 07:57] LABS: CREATININE 0.8 mg/dL (0.55-1.3)
[2023-10-17 07:59] LABS: BILIRUBIN,TOTAL 1.1 mg/dL (0.2-1); TOT PROT 4.9 g/dl (6.4-8.2)
[2023-10-17 09:18] LABS: ANISOCYTOSIS 0; MACROCYTOSIS 0
[2023-10-17 16:18] LABS: HEMOGLOBIN 11.6 GM/dL (10.7-15.3); MCH 30.1 pg (25.7-33.7); MEAN CELL VOLUME 88.4 fl (80-96); MEAN PLT VOLUME 8.9 fl (7.5-11.1); PLATELET COUNT 181 10^3/uL (134-434); RBC 3.85 M/mm3 (3.60-5.2); WHITE BLOOD COUNT 24.4 K/mm3 (4.0-10.0)
[2023-10-17 17:18] LABS: ANISOCYTOSIS 1+; MACROCYTOSIS 1+
[2023-10-17] MEDS: PIPERACILLIN/TAZOB 3.375 GM 3.375 GM in DEXTROSE 5%-WATER - 50 ML IVPB SCH (21:05)
[2023-10-17] MEDS: ONDANSETRON 4 MG/2 ML VIAL IVPUSH ONE (23:48)
[2023-10-18 07:31] LABS: HEMATOCRIT 29.5 % (32.4-45.2); HEMOGLOBIN 10.1 GM/dL (10.7-15.3); MCH 30.4 pg (25.7-33.7); MCHC 34.2 g/dl (32.0-36.0); MEAN PLT VOLUME 9.4 fl (7.5-11.1); PLATELET COUNT 146 10^3/uL (134-434); RBC 3.32 M/mm3 (3.60-5.2); RDW 15.1 % (11.6-15.6)
[2023-10-18 07:50] LABS: POTASSIUM 3.9 mmol/L (3.5-5.1)
[2023-10-18 08:08] LABS: ALBUMIN 2.2 g/dl (3.4-5.0)
[2023-10-18 08:09] LABS: BLOOD UREA NITROGEN 32.8 mg/dL (7-18); CALCIUM 9.1 mg/dL (8.5-10.1); MAGNESIUM 1.6 mg/dL (1.8-2.4)
[2023-10-18 08:12] LABS: CREATININE 0.9 mg/dL (0.55-1.3)
[2023-10-18 08:13] LABS: BILIRUBIN,TOTAL 1.1 mg/dL (0.2-1); TOT PROT 4.7 g/dl (6.4-8.2)
[2023-10-18] MEDS: LEVOTHYROXINE SODIUM 100 MCG 5 ML VIAL IVPUSH SCH (09:31)
[2023-10-18] MEDS: MAGNESIUM 2GM/50ML STERILE WATER IVPB IVPB ONE (14:34)
[2023-10-19] MEDS ORDERED: ONDANSETRON 4 MG/2 ML VIAL ONE (04:03)
[2023-10-19] MEDS: ONDANSETRON 4 MG/2 ML VIAL IVPUSH ONE (04:10)
[2023-10-19 06:36] LABS: HEMATOCRIT 26.4 % (32.4-45.2); HEMOGLOBIN 9.2 GM/dL (10.7-15.3); MCH 30.7 pg (25.7-33.7); MCHC 34.8 g/dl (32.0-36.0); MEAN CELL VOLUME 88.3 fl (80-96); MEAN PLT VOLUME 9.3 fl (7.5-11.1); PLATELET COUNT 131 10^3/uL (134-434); RBC 2.99 M/mm3 (3.60-5.2); RDW 15.6 % (11.6-15.6); WHITE BLOOD COUNT 8.7 K/mm3 (4.0-10.0)
[2023-10-19] MEDS ORDERED: PIPERACILLIN/TAZOB 3.375 GM 3.375 GM in DEXTROSE 5%-WATER - 50 ML IVPB SCH (06:45)
[2023-10-19 06:48] LABS: POTASSIUM 3.2 mmol/L (3.5-5.1)
[2023-10-19] MEDS: PIPERACILLIN/TAZOB 3.375 GM 3.375 GM in DEXTROSE 5%-WATER - 50 ML IVPB SCH (06:52)
[2023-10-19 06:59] LABS: BLOOD UREA NITROGEN 34.8 mg/dL (7-18); CALCIUM 9.1 mg/dL (8.5-10.1)
[2023-10-19 07:02] LABS: CREATININE 0.7 mg/dL (0.55-1.3); PHOSPHOROUS 1.3 mg/dL (2.5-4.9)
[2023-10-19 07:04] LABS: BILIRUBIN,TOTAL 0.9 mg/dL (0.2-1); TOT PROT 4.5 g/dl (6.4-8.2)
[2023-10-19] MEDS: KCL 10 MEQ IVPB 10 MEQ/100 ML INFUS.BAG IVPB SCH (09:00)
[2023-10-19] MEDS: KCL 20 MEQ PREMIX BAG 20 MEQ/100 ML INFUS.BAG IVPB SCH (09:34)
[2023-10-19 09:41] LABS: ARTERIAL BLD GAS O2 SATURATION 97.7 % (95-98); ARTERIAL BLOOD GAS BASE EXCESS -5.1 mmol/L (-2-2); ARTERIAL BLOOD GAS PO2 98.8 mmHg (80-100); ARTERIAL BLOOD GAS pH 7.423 (7.350-7.450)
[2023-10-19] MEDS: POTASSIUM PHOSPHATE 30 MM in SODIUM CHLORIDE 500 ML IVPB ONE (12:17)
[2023-10-19 16:38] LABS: POTASSIUM 4.3 mmol/L (3.5-5.1)
[2023-10-19 16:40] LABS: CALCIUM 9.7 mg/dL (8.5-10.1)
[2023-10-19 16:41] LABS: BLOOD UREA NITROGEN 37.4 mg/dL (7-18); MAGNESIUM 2.1 mg/dL (1.8-2.4)
[2023-10-19 16:44] LABS: CREATININE 0.9 mg/dL (0.55-1.3); PHOSPHOROUS 2.6 mg/dL (2.5-4.9)
[2023-10-19] MEDS: ACETAMINOPHEN 1000 MG/100 ML BAG IVPB SCH (18:46)
[2023-10-20 06:30] LABS: HEMATOCRIT 24.8 % (32.4-45.2); HEMOGLOBIN 8.5 GM/dL (10.7-15.3); MCH 30.5 pg (25.7-33.7); MCHC 34.4 g/dl (32.0-36.0); MEAN CELL VOLUME 88.6 fl (80-96); MEAN PLT VOLUME 8.9 fl (7.5-11.1); PLATELET COUNT 131 10^3/uL (134-434); RDW 16.1 % (11.6-15.6); WHITE BLOOD COUNT 10.8 K/mm3 (4.0-10.0)
[2023-10-20 06:52] LABS: POTASSIUM 3.9 mmol/L (3.5-5.1)
[2023-10-20 06:56] LABS: ALBUMIN 1.9 g/dl (3.4-5.0); BLOOD UREA NITROGEN 36.8 mg/dL (7-18); MAGNESIUM 1.8 mg/dL (1.8-2.4)
[2023-10-20 06:59] LABS: CREATININE 0.8 mg/dL (0.55-1.3); PHOSPHOROUS 1.9 mg/dL (2.5-4.9)
[2023-10-20 07:00] LABS: TOT PROT 4.5 g/dl (6.4-8.2)
[2023-10-20 07:01] LABS: BILIRUBIN,TOTAL 0.8 mg/dL (0.2-1)
[2023-10-20] MEDS: POTASSIUM PHOSPHATE 15 MM in SODIUM CHLORIDE 250 ML IVPB ONE (09:49)
[2023-10-20] MEDS: PIPERACILLIN/TAZOB 3.375 GM 3.375 GM in DEXTROSE 5%-WATER - 50 ML IVPB SCH (12:32)
[2023-10-20] MEDS: morphine SULFATE 4 MG/ML VIAL IVPUSH PRN (22:43)
[2023-10-21 06:27] LABS: HEMATOCRIT 23.9 % (32.4-45.2); MCH 30.2 pg (25.7-33.7); MCHC 33.6 g/dl (32.0-36.0); MEAN CELL VOLUME 89.7 fl (80-96); MEAN PLT VOLUME 8.7 fl (7.5-11.1); PLATELET COUNT 149 10^3/uL (134-434); RBC 2.67 M/mm3 (3.60-5.2); WHITE BLOOD COUNT 9.6 K/mm3 (4.0-10.0)
[2023-10-21 06:44] LABS: POTASSIUM 3.8 mmol/L (3.5-5.1)
[2023-10-21 06:48] LABS: ALBUMIN 1.8 g/dl (3.4-5.0); BLOOD UREA NITROGEN 31.7 mg/dL (7-18); CALCIUM 8.6 mg/dL (8.5-10.1); MAGNESIUM 1.6 mg/dL (1.8-2.4)
[2023-10-21 06:51] LABS: CREATININE 0.7 mg/dL (0.55-1.3); PHOSPHOROUS 1.5 mg/dL (2.5-4.9)
[2023-10-21 06:53] LABS: BILIRUBIN,TOTAL 0.6 mg/dL (0.2-1); TOT PROT 4.2 g/dl (6.4-8.2)
[2023-10-21] MEDS ORDERED: POTASSIUM CHLORIDE TABS 20 MEQ TABLET.ER (FP) PO ONE (08:00)
[2023-10-21] MEDS ORDERED: KCL 20 MEQ PREMIX BAG 20 MEQ/100 ML INFUS.BAG IVPB ONE (08:30)
[2023-10-21] MEDS: MAGNESIUM 2GM/50ML STERILE WATER IVPB IVPB ONE (09:13)
[2023-10-21] MEDS: POLYETHYLENE GLYCOL (HEALTHYLAX) 3350 17 GM PACKET NGT ONE (10:05)
[2023-10-21] MEDS: Methylnaltrexone Bromide 12 MG/0.6 ML KIT SQ SCH (10:11)
[2023-10-21] MEDS: POTASSIUM PHOSPHATE 30 MM in SODIUM CHLORIDE 250 ML IVPB ONE (10:11)
[2023-10-21 17:00] LABS: POTASSIUM 4.3 mmol/L (3.5-5.1)
[2023-10-21 17:01] LABS: BLOOD UREA NITROGEN 29.8 mg/dL (7-18); CALCIUM 8.9 mg/dL (8.5-10.1); MAGNESIUM 2.2 mg/dL (1.8-2.4)
[2023-10-21 17:05] LABS: CREATININE 0.7 mg/dL (0.55-1.3); PHOSPHOROUS 2.6 mg/dL (2.5-4.9)
[2023-10-21 17:07] LABS: CHOLESTEROL 121 mg/dL (50-200)
[2023-10-21 17:09] LABS: LDL CHOLESTEROL (ONLY SJRH) 50 mg/dL (5-100)
[2023-10-21 17:11] LABS: HDL CHOLESTEROL 41 mg/dL (40-60)
[2023-10-21] MEDS: morphine SULFATE 4 MG/ML VIAL IVPUSH PRN (19:53)
[2023-10-21] MEDS: SIMETHICONE 80 MG TAB.CHEW (FP) PO PRN (21:23)
[2023-10-21] MEDS ORDERED: FAT EMULSION/OLIVE/SOY (CLINOLIPID) 250 ML EMULSION IV SCH (22:00)
[2023-10-21] MEDS: FAT EMULSION/OLIVE/SOY/PHOSPHO 250 ML IV SCH (22:46)
[2023-10-22] MEDS: ONDANSETRON 4 MG/2 ML VIAL IVPUSH ONE (02:20)
[2023-10-22 06:44] LABS: HEMATOCRIT 26.4 % (32.4-45.2); HEMOGLOBIN 8.9 GM/dL (10.7-15.3); MCH 30.1 pg (25.7-33.7); MCHC 33.6 g/dl (32.0-36.0); MEAN CELL VOLUME 89.5 fl (80-96); MEAN PLT VOLUME 8.5 fl (7.5-11.1); PLATELET COUNT 186 10^3/uL (134-434); RBC 2.95 M/mm3 (3.60-5.2); RDW 17.6 % (11.6-15.6); WHITE BLOOD COUNT 11.2 K/mm3 (4.0-10.0)
[2023-10-22 07:08] LABS: CALCIUM 9.6 mg/dL (8.5-10.1)
[2023-10-22 07:09] LABS: BLOOD UREA NITROGEN 28.4 mg/dL (7-18)
[2023-10-22 07:11] LABS: CREATININE 0.7 mg/dL (0.55-1.3)
[2023-10-22 07:12] LABS: PHOSPHOROUS 1.5 mg/dL (2.5-4.9)
[2023-10-22 07:13] LABS: BILIRUBIN,TOTAL 0.5 mg/dL (0.2-1); TOT PROT 4.7 g/dl (6.4-8.2)
[2023-10-22] MEDS: METOPROLOL TARTRATE 25 MG TABLET (FP) PO SCH (09:24)
[2023-10-22] MEDS: SODIUM PHOSPHATE - 20 MM in SODIUM CHLORIDE 250 ML IVPB ONE (12:02)
[2023-10-22] MEDS: morphine SULFATE 4 MG/ML VIAL IVPUSH PRN (14:26)
[2023-10-22] MEDS: NAPH,MB-DB/K PH,MBDB POWDER PACKET NGT SCH (21:31)
[2023-10-23 07:36] LABS: BLOOD UREA NITROGEN 21.6 mg/dL (7-18); CALCIUM 9.7 mg/dL (8.5-10.1); MAGNESIUM 1.7 mg/dL (1.8-2.4); POTASSIUM 3.6 mmol/L (3.5-5.1)
[2023-10-23 07:47] LABS: CREATININE 0.6 mg/dL (0.55-1.3); PHOSPHOROUS 1.8 mg/dL (2.5-4.9)
[2023-10-23 08:35] LABS: HEMATOCRIT 25.8 % (32.4-45.2); HEMOGLOBIN 8.8 GM/dL (10.7-15.3); MCH 30.9 pg (25.7-33.7); MCHC 34.3 g/dl (32.0-36.0); MEAN CELL VOLUME 90.2 fl (80-96); MEAN PLT VOLUME 8.5 fl (7.5-11.1); PLATELET COUNT 194 10^3/uL (134-434); RBC 2.86 M/mm3 (3.60-5.2); RDW 17.2 % (11.6-15.6)
[2023-10-23] MEDS: MAGNESIUM SULF 50% (8.12 MEQ/2 ML-1 GM VIAL) IVPB ONE (11:05)
[2023-10-23] MEDS: POTASSIUM PHOSPHATE 30 MM in SODIUM CHLORIDE 500 ML IVPB ONE (13:00)
[2023-10-23 14:56] LABS: INR 0.96 (0.83-1.09); PROTHROMBIN TIME (PATIENT) 11.1 SEC (9.7-13.0)
[2023-10-23 14:59] LABS: ACTIVATED PTT 50.9 SECONDS (25.2-36.5)
[2023-10-24 06:23] LABS: HEMATOCRIT 25.2 % (32.4-45.2); HEMOGLOBIN 8.6 GM/dL (10.7-15.3); MCH 31.1 pg (25.7-33.7); MCHC 34.2 g/dl (32.0-36.0); MEAN CELL VOLUME 90.7 fl (80-96); MEAN PLT VOLUME 8.1 fl (7.5-11.1); PLATELET COUNT 195 10^3/uL (134-434); RBC 2.77 M/mm3 (3.60-5.2); RDW 17.6 % (11.6-15.6); WHITE BLOOD COUNT 7.2 K/mm3 (4.0-10.0)
[2023-10-24 06:25] LABS: POTASSIUM 4.1 mmol/L (3.5-5.1)
[2023-10-24 06:27] LABS: CALCIUM 9.4 mg/dL (8.5-10.1)
[2023-10-24 06:28] LABS: MAGNESIUM 1.7 mg/dL (1.8-2.4)
[2023-10-24 06:31] LABS: CREATININE 0.5 mg/dL (0.55-1.3); PHOSPHOROUS 1.7 mg/dL (2.5-4.9)
[2023-10-24 06:32] LABS: BILIRUBIN,TOTAL 0.4 mg/dL (0.2-1)
[2023-10-24 06:33] LABS: TOT PROT 4.7 g/dl (6.4-8.2)
[2023-10-24] MEDS ORDERED: SIMETHICONE 80 MG TAB.CHEW (FP) PO PRN (07:04)
[2023-10-24] MEDS ORDERED: HEPARIN NA (PORCINE) 5,000 UNITS/ML 1ML VIAL IVPUSH PRN (07:04)
[2023-10-24] MEDS ORDERED: OXYMETAZOLINE 0.05% NASAL SOLUTION 15 ML BOTTLE NS PRN (07:04)
[2023-10-24] MEDS: HEPARIN SOD,PORK IN 0.45% NACL 25,000 UNITS/500 ML INFUS.BAG IVPB SCH (08:42)
[2023-10-24] MEDS: HEPARIN NA (PORCINE) 5,000 UNITS/ML 1ML VIAL IVPUSH PRN (08:48)
[2023-10-24] MEDS: diazePAM CARPU-JECT 10 MG/2 ML DISP.SYRIN IVPUSH PRN (08:48)
[2023-10-24] MEDS: POLYETHYLENE GLYCOL (HEALTHYLAX) 3350 17 GM PACKET PO SCH (09:02)
[2023-10-24] MEDS: PANTOPRAZOLE SODIUM 40 MG VIAL IVPUSH SCH (09:02)
[2023-10-24] MEDS: amLODIPine BESYLATE 5 MG TABLET (FP) PO SCH (09:02)
[2023-10-24 09:16] LABS: ANISOCYTOSIS 0; HELMET CELLS 0; HOWELL-JOLLY BODIES 0; MACROCYTOSIS 0; OVALOCYTE 0; ROULEAU 0; SICKELED CELLS 0; TARGET CELLS 0; TEAR DROP CELLS 0; TOXIC GRANULATION 0
[2023-10-24] MEDS: LEVOTHYROXINE SODIUM 100 MCG 5 ML VIAL IVPUSH SCH (09:20)
[2023-10-24] MEDS: Methylnaltrexone Bromide 12 MG/0.6 ML KIT SQ SCH (09:54)
[2023-10-24] MEDS: THIAMINE HCL 200 MG/2 ML VIAL IVPB SCH (10:45)
[2023-10-24] MEDS: MAGNESIUM 2GM/50ML STERILE WATER IVPB IVPB ONE (11:43)
[2023-10-24] MEDS: ACETAMINOPHEN 1000 MG/100 ML BAG IVPB SCH (12:19)
[2023-10-24] MEDS: SODIUM PHOSPHATE - 30 MM in SODIUM CHLORIDE 500 ML IVPB ONE (12:32)
[2023-10-24] MEDS: POTASSIUM CHLORIDE 10 MEQ in AMINO ACIDS 4.25%/D5W 1,000 ML IV SCH (13:04)
[2023-10-24] MEDS: diazePAM CARPU-JECT 10 MG/2 ML DISP.SYRIN IVPUSH ONE (14:50)
[2023-10-24] MEDS: ATORVASTATIN CA 10 MG TABLET (FP) PO SCH (21:41)
[2023-10-25 07:53] LABS: HEMATOCRIT 28.5 % (32.4-45.2); HEMOGLOBIN 9.6 GM/dL (10.7-15.3); MCH 30.6 pg (25.7-33.7); MCHC 33.5 g/dl (32.0-36.0); MEAN CELL VOLUME 91.4 fl (80-96); MEAN PLT VOLUME 8.2 fl (7.5-11.1); PLATELET COUNT 271 10^3/uL (134-434); RBC 3.12 M/mm3 (3.60-5.2); RDW 17.5 % (11.6-15.6); WHITE BLOOD COUNT 8.8 K/mm3 (4.0-10.0)
[2023-10-25 08:05] LABS: POTASSIUM 3.8 mmol/L (3.5-5.1)
[2023-10-25 08:13] LABS: ALBUMIN 2.2 g/dl (3.4-5.0)
[2023-10-25 08:14] LABS: CREATININE 0.5 mg/dL (0.55-1.3)
[2023-10-25 08:15] LABS: BILIRUBIN,TOTAL 0.4 mg/dL (0.2-1); TOT PROT 5.3 g/dl (6.4-8.2)
[2023-10-25 08:16] LABS: CALCIUM 10.2 mg/dL (8.5-10.1)
[2023-10-25 08:17] LABS: BLOOD UREA NITROGEN 17.7 mg/dL (7-18)
[2023-10-25 08:59] LABS: ANISOCYTOSIS 0; HELMET CELLS 0; HOWELL-JOLLY BODIES 0; MACROCYTOSIS 0; OVALOCYTE 0; ROULEAU 0; SICKELED CELLS 0; TARGET CELLS 0; TEAR DROP CELLS 0; TOXIC GRANULATION 0
[2023-10-25 09:54] LABS: MAGNESIUM 1.9 mg/dL (1.8-2.4)
[2023-10-25 09:58] LABS: PHOSPHOROUS 2.8 mg/dL (2.5-4.9)
[2023-10-25] MEDS: diazePAM CARPU-JECT 10 MG/2 ML DISP.SYRIN IVPUSH PRN (14:13)
[2023-10-25] MEDS: IRON SUCROSE INJECTION 200 MG in SODIUM CHLORIDE 100 ML IVPB ONE (14:36)
[2023-10-25] MEDS: WARFARIN NA 2 MG TABLET PO SCH (17:04)
[2023-10-26 07:50] LABS: INR 0.96 (0.83-1.09); PROTHROMBIN TIME (PATIENT) 11.1 SEC (9.7-13.0)
[2023-10-26] MEDS: FAMOTIDINE 20 MG TABLET PO SCH (09:06)
[2023-10-26] MEDS: diazePAM 2 MG TABLET PO PRN (09:06)
[2023-10-26] MEDS: oxyCODONE HCL 5 MG TABLET PO PRN (12:11)
[2023-10-26] MEDS: ENOXAPARIN NA (PORCINE) 80 MG/0.8 ML DISP.SYRIN SQ SCH (18:56)
[2023-10-26] MEDS: HEPARIN SOD,PORK IN 0.45% NACL 25,000 UNITS/500 ML INFUS.BAG IVPB SCH (20:00)
[2023-10-27] MEDS: morphine SULFATE IMMEDIATE RELEASE 30 MG TAB PO PRN (06:32)
[2023-10-27] MEDS: LEVOTHYROXINE NA 88 MCG TABLET (FP) PO SCH (06:33)
[2023-10-27 07:28] LABS: HEMATOCRIT 26.4 % (32.4-45.2); HEMOGLOBIN 8.9 GM/dL (10.7-15.3); MCHC 33.7 g/dl (32.0-36.0); MEAN CELL VOLUME 91.9 fl (80-96); MEAN PLT VOLUME 7.4 fl (7.5-11.1); PLATELET COUNT 319 10^3/uL (134-434); RBC 2.87 M/mm3 (3.60-5.2); RDW 18.5 % (11.6-15.6); WHITE BLOOD COUNT 8.3 K/mm3 (4.0-10.0)
[2023-10-27 07:34] LABS: INR 1.08 (0.83-1.09); PROTHROMBIN TIME (PATIENT) 12.2 SEC (9.7-13.0)
[2023-10-27 07:48] LABS: POTASSIUM 4.1 mmol/L (3.5-5.1)
[2023-10-27 07:54] LABS: CALCIUM 10.3 mg/dL (8.5-10.1)
[2023-10-27 07:55] LABS: ALBUMIN 2.1 g/dl (3.4-5.0); BLOOD UREA NITROGEN 15.3 mg/dL (7-18)
[2023-10-27 07:57] LABS: BILIRUBIN,TOTAL 0.5 mg/dL (0.2-1)
[2023-10-27 07:58] LABS: CREATININE 0.5 mg/dL (0.55-1.3)
[2023-10-27] MEDS: FUROSEMIDE 40 MG TABLET (FP) PO SCH (09:10)
[2023-10-27] MEDS: POTASSIUM CHLORIDE TABS 10 MEQ TABLET.ER (FP) PO SCH (09:10)
[2023-10-27] MEDS: CYANOCOBALAMIN (VITAMIN B-12) 1000 MCG/1 ML VIAL IM SCH (11:37)
[2023-10-28] MEDS: ESCITALOPRAM OXALATE 10 MG TABLET PO SCH (10:27)
[2023-10-28] MEDS: DRONABINOL 2.5 MG CAPSULE PO SCH (10:29)
[2023-10-28 10:54] LABS: INR 1.44 (0.83-1.09); PROTHROMBIN TIME (PATIENT) 16.1 SEC (9.7-13.0)
[2023-10-28 22:17] LABS: INR 1.5 (0.83-1.09); PROTHROMBIN TIME (PATIENT) 16.8 SEC (9.7-13.0)
[2023-10-28] MEDS ORDERED: WARFARIN NA 2 MG TABLET PO SCH (22:36)
[2023-10-28] MEDS ORDERED: WARFARIN NA 2 MG TABLET PO ONE (22:36)
[2023-10-28] MEDS ORDERED: ENOXAPARIN NA (PORCINE) 80 MG/0.8 ML DISP.SYRIN SQ SCH (22:45)
[2023-10-28] MEDS: BACITRACIN/POLYMYXIN B SULFATE 15 GM TUBE TP SCH (23:06)
[2023-10-29] MEDS: WARFARIN NA 1 MG TABLET PO ONE (01:39)
[2023-10-29] MEDS: ENOXAPARIN NA (PORCINE) 80 MG/0.8 ML DISP.SYRIN SQ SCH (06:06)
[2023-10-29 06:58] LABS: INR 1.61 (0.83-1.09); PROTHROMBIN TIME (PATIENT) 17.9 SEC (9.7-13.0)
[2023-10-29] MEDS: diazePAM 2 MG TABLET PO PRN (13:39)
[2023-10-29] MEDS ORDERED: WARFARIN NA 3 MG TABLET PO SCH (18:17)
[2023-10-29 18:31] LABS: INR 1.8 (0.83-1.09); PROTHROMBIN TIME (PATIENT) 20.3 SEC (9.7-13.0)
[2023-10-29] MEDS: WARFARIN NA 2 MG TABLET PO SCH (18:39)
[2023-10-29] MEDS: D5-1/2NS+20 MEQ KCL - 20 MEQ/1,000 ML INFUS.BAG IV SCH (18:44)
[2023-10-29] MEDS: WARFARIN NA 3 MG TABLET PO SCH (19:20)
[2023-10-30] MEDS: SODIUM CHLORIDE 250 ML IV STA (02:17)
[2023-10-30 03:53] LABS: HEMATOCRIT 26.8 % (32.4-45.2); HEMOGLOBIN 8.7 GM/dL (10.7-15.3); MCH 30.2 pg (25.7-33.7); MCHC 32.5 g/dl (32.0-36.0); MEAN PLT VOLUME 7.5 fl (7.5-11.1); PLATELET COUNT 428 10^3/uL (134-434); RBC 2.88 M/mm3 (3.60-5.2); RDW 19.8 % (11.6-15.6); WHITE BLOOD COUNT 14.1 K/mm3 (4.0-10.0)
[2023-10-30 04:18] LABS: POTASSIUM 4.1 mmol/L (3.5-5.1)
[2023-10-30 04:20] LABS: CALCIUM 10.5 mg/dL (8.5-10.1)
[2023-10-30 04:21] LABS: ALBUMIN 2.3 g/dl (3.4-5.0); BLOOD UREA NITROGEN 20.3 mg/dL (7-18)
[2023-10-30 04:25] LABS: BILIRUBIN,TOTAL 0.5 mg/dL (0.2-1); TOT PROT 5.3 g/dl (6.4-8.2)
[2023-10-30 06:36] LABS: ANISOCYTOSIS 3+; MACROCYTOSIS 0; ROULEAU 1+
[2023-10-30 07:17] LABS: INR 2.31 (0.83-1.09); PROTHROMBIN TIME (PATIENT) 25.9 SEC (9.7-13.0)
[2023-10-30] MEDS: ACETAMINOPHEN 325 MG TABLET (FP) PO PRN (07:32)
[2023-10-30] MEDS ORDERED: ONDANSETRON 4 MG/2 ML VIAL ONE (08:49)
[2023-10-30] MEDS: ONDANSETRON 4 MG/2 ML VIAL IVPUSH ONE (09:01)
[2023-10-30] MEDS: diazePAM 2 MG TABLET PO PRN (09:34)
[2023-10-30 10:17] LABS: URIC ACID 8.3 mg/dL (2.6-7.2)
[2023-10-30] MEDS: AMINO ACIDS 4.25%/D5W 1,000 ML IV SCH (15:44)
[2023-10-30 16:57] LABS: HEMATOCRIT 23.6 % (32.4-45.2); HEMOGLOBIN 7.8 GM/dL (10.7-15.3); MCH 29.8 pg (25.7-33.7); MCHC 33.1 g/dl (32.0-36.0); MEAN PLT VOLUME 6.9 fl (7.5-11.1); PLATELET COUNT 335 10^3/uL (134-434); RBC 2.62 M/mm3 (3.60-5.2); RDW 20.7 % (11.6-15.6); WHITE BLOOD COUNT 12.3 K/mm3 (4.0-10.0)
[2023-10-30 17:03] LABS: ADD RBC MORPHOLOGY YES
[2023-10-30 17:28] LABS: POTASSIUM 4.5 mmol/L (3.5-5.1)
[2023-10-30 17:29] LABS: CALCIUM 9.9 mg/dL (8.5-10.1)
[2023-10-30 17:30] LABS: ALBUMIN 2.1 g/dl (3.4-5.0); BLOOD UREA NITROGEN 25.3 mg/dL (7-18)
[2023-10-30 17:35] LABS: BILIRUBIN,TOTAL 0.3 mg/dL (0.2-1); TOT PROT 4.7 g/dl (6.4-8.2)
[2023-10-30 17:56] LABS: ANISOCYTOSIS 2+; MACROCYTOSIS 0; OVALOCYTE 1+
[2023-10-31] MEDS: ACETAMINOPHEN 1000 MG/100 ML BAG IVPB ONE (00:04)
[2023-10-31 00:10] LABS: HEMATOCRIT 25.6 % (32.4-45.2); HEMOGLOBIN 8.5 GM/dL (10.7-15.3); MCH 29.5 pg (25.7-33.7); MCHC 33.3 g/dl (32.0-36.0); MEAN CELL VOLUME 88.7 fl (80-96); MEAN PLT VOLUME 6.8 fl (7.5-11.1); PLATELET COUNT 318 10^3/uL (134-434); RBC 2.89 M/mm3 (3.60-5.2); RDW 20.1 % (11.6-15.6); WHITE BLOOD COUNT 10.6 K/mm3 (4.0-10.0)
[2023-10-31] MEDS: PANTOPRAZOLE SODIUM 40 MG VIAL IVPUSH SCH (00:57)
[2023-10-31] MEDS ORDERED: ACETAMINOPHEN INJECTION 100 ML IVPB ONE (08:07)
[2023-10-31 08:12] LABS: HEMATOCRIT 29.1 % (32.4-45.2); HEMOGLOBIN 9.7 GM/dL (10.7-15.3); MCH 29.2 pg (25.7-33.7); MCHC 33.2 g/dl (32.0-36.0); MEAN CELL VOLUME 87.9 fl (80-96); MEAN PLT VOLUME 7.3 fl (7.5-11.1); PLATELET COUNT 320 10^3/uL (134-434); POTASSIUM 4.6 mmol/L (3.5-5.1); RBC 3.32 M/mm3 (3.60-5.2); RDW 18.4 % (11.6-15.6); WHITE BLOOD COUNT 13.1 K/mm3 (4.0-10.0)
[2023-10-31] MEDS: ACETAMINOPHEN 1000 MG/100 ML BAG IVPB PRN (08:15)
[2023-10-31 08:17] LABS: ALBUMIN 2.1 g/dl (3.4-5.0); CALCIUM 9.9 mg/dL (8.5-10.1)
[2023-10-31 08:18] LABS: BLOOD UREA NITROGEN 25.6 mg/dL (7-18); MAGNESIUM 1.5 mg/dL (1.8-2.4)
[2023-10-31 08:21] LABS: PHOSPHOROUS 2.6 mg/dL (2.5-4.9)
[2023-10-31 08:22] LABS: BILIRUBIN,TOTAL 0.6 mg/dL (0.2-1); TOT PROT 4.6 g/dl (6.4-8.2)
[2023-10-31 09:01] LABS: ANISOCYTOSIS 3+; MACROCYTOSIS 0; OVALOCYTE 1+
[2023-10-31 10:32] LABS: INR 3.33 (0.83-1.09)
[2023-10-31 14:59] LABS: HEMATOCRIT 27.3 % (32.4-45.2); MCH 28.6 pg (25.7-33.7); MEAN CELL VOLUME 86.7 fl (80-96); MEAN PLT VOLUME 7.3 fl (7.5-11.1); PLATELET COUNT 295 10^3/uL (134-434); RBC 3.15 M/mm3 (3.60-5.2); RDW 18.5 % (11.6-15.6); WHITE BLOOD COUNT 12.8 K/mm3 (4.0-10.0)
[2023-10-31 15:22] LABS: ANISOCYTOSIS 2+; MACROCYTOSIS 0
[2023-11-01 07:19] LABS: HEMATOCRIT 26.1 % (32.4-45.2); MCH 29.8 pg (25.7-33.7); MCHC 34.4 g/dl (32.0-36.0); MEAN CELL VOLUME 86.5 fl (80-96); MEAN PLT VOLUME 7.1 fl (7.5-11.1); PLATELET COUNT 318 10^3/uL (134-434); RBC 3.01 M/mm3 (3.60-5.2); RDW 18.4 % (11.6-15.6); WHITE BLOOD COUNT 11.9 K/mm3 (4.0-10.0)
[2023-11-01 07:23] LABS: INR 3.71 (0.83-1.09); PROTHROMBIN TIME (PATIENT) 41.1 SEC (9.7-13.0)
[2023-11-01 07:48] LABS: POTASSIUM 4.3 mmol/L (3.5-5.1)
[2023-11-01 07:49] LABS: CALCIUM 9.8 mg/dL (8.5-10.1)
[2023-11-01 07:50] LABS: ALBUMIN 2.2 g/dl (3.4-5.0); BLOOD UREA NITROGEN 22.5 mg/dL (7-18)
[2023-11-01 07:53] LABS: CREATININE 0.7 mg/dL (0.55-1.3)
[2023-11-01 07:55] LABS: BILIRUBIN,TOTAL 0.4 mg/dL (0.2-1); TOT PROT 4.7 g/dl (6.4-8.2)
[2023-11-01 10:06] LABS: ANISOCYTOSIS 0; HELMET CELLS 0; HOWELL-JOLLY BODIES 0; MACROCYTOSIS 0; OVALOCYTE 0; ROULEAU 0; SICKELED CELLS 0; TARGET CELLS 0; TEAR DROP CELLS 0; TOXIC GRANULATION 0
[2023-11-01 14:36] LABS: HEMATOCRIT 26.8 % (32.4-45.2); HEMOGLOBIN 8.8 GM/dL (10.7-15.3); MCH 28.5 pg (25.7-33.7); MCHC 32.9 g/dl (32.0-36.0); MEAN CELL VOLUME 86.7 fl (80-96); MEAN PLT VOLUME 6.8 fl (7.5-11.1); PLATELET COUNT 309 10^3/uL (134-434); RBC 3.09 M/mm3 (3.60-5.2); RDW 18.1 % (11.6-15.6); WHITE BLOOD COUNT 11.2 K/mm3 (4.0-10.0)
[2023-11-01 15:17] LABS: ANISOCYTOSIS 0; HELMET CELLS 0; HOWELL-JOLLY BODIES 0; MACROCYTOSIS 0; OVALOCYTE 0; ROULEAU 0; SICKELED CELLS 0; TARGET CELLS 0; TEAR DROP CELLS 0; TOXIC GRANULATION 0
[2023-11-01] MEDS: ACETAMINOPHEN 500 MG TABLET (FP) PO PRN (22:22)
[2023-11-02 07:36] LABS: HEMATOCRIT 26.9 % (32.4-45.2); HEMOGLOBIN 9.1 GM/dL (10.7-15.3); MCH 29.5 pg (25.7-33.7); MCHC 33.8 g/dl (32.0-36.0); MEAN CELL VOLUME 87.3 fl (80-96); MEAN PLT VOLUME 7.2 fl (7.5-11.1); PLATELET COUNT 276 10^3/uL (134-434); RBC 3.08 M/mm3 (3.60-5.2); WHITE BLOOD COUNT 6.2 K/mm3 (4.0-10.0)
[2023-11-02 07:39] LABS: POTASSIUM 3.7 mmol/L (3.5-5.1)
[2023-11-02 07:42] LABS: ALBUMIN 2.1 g/dl (3.4-5.0); BLOOD UREA NITROGEN 18.2 mg/dL (7-18)
[2023-11-02 07:45] LABS: CREATININE 0.8 mg/dL (0.55-1.3)
[2023-11-02 07:47] LABS: BILIRUBIN,TOTAL 0.7 mg/dL (0.2-1); TOT PROT 4.6 g/dl (6.4-8.2)
[2023-11-02] MEDS: Methylnaltrexone Bromide 12 MG/0.6 ML KIT SQ SCH (09:14)
[2023-11-02 09:26] LABS: PLATELET ESTIMATE ADEQUATE
[2023-11-02] MEDS: LEVOTHYROXINE SODIUM 100 MCG 5 ML VIAL IVPUSH SCH (09:31)
[2023-11-02] MEDS: fentaNYL 12mcg/hr PATCH.TD72 TD SCH (11:11)
[2023-11-02] MEDS: METOPROLOL TARTRATE 5 MG/5 ML VIAL IVPUSH PRN (13:50)
[2023-11-02] MEDS: diazePAM CARPU-JECT 10 MG/2 ML DISP.SYRIN IVPUSH PRN (13:50)
[2023-11-02 13:58] LABS: INR 3.15 (0.83-1.09)
[2023-11-03 07:54] LABS: POTASSIUM 4.2 mmol/L (3.5-5.1)
[2023-11-03 07:55] LABS: HEMATOCRIT 25.3 % (32.4-45.2); HEMOGLOBIN 8.3 GM/dL (10.7-15.3); MCH 28.6 pg (25.7-33.7); MCHC 32.7 g/dl (32.0-36.0); MEAN CELL VOLUME 87.4 fl (80-96); MEAN PLT VOLUME 7.4 fl (7.5-11.1); PLATELET COUNT 210 10^3/uL (134-434); RDW 18.8 % (11.6-15.6); WHITE BLOOD COUNT 28.9 K/mm3 (4.0-10.0)
[2023-11-03 07:58] LABS: ALBUMIN 1.8 g/dl (3.4-5.0); BLOOD UREA NITROGEN 24.3 mg/dL (7-18); CALCIUM 9.4 mg/dL (8.5-10.1)
[2023-11-03 08:03] LABS: BILIRUBIN,TOTAL 0.9 mg/dL (0.2-1); TOT PROT 4.2 g/dl (6.4-8.2)
[2023-11-03 08:04] LABS: CREATININE 0.8 mg/dL (0.55-1.3)
[2023-11-03 08:07] LABS: INR 2.2 (0.83-1.09); PROTHROMBIN TIME (PATIENT) 24.3 SEC (9.7-13.0)
[2023-11-03] MEDS: ACETAMINOPHEN 1000 MG/100 ML BAG IVPB ONE (12:42)
[2023-11-04] MEDS: LORazepam 2 MG/ML SDV VIAL IM ONE (12:59)
[2023-11-05] MEDS ORDERED: ONDANSETRON 4 MG/2 ML VIAL ONE (10:26)
[2023-11-05 12:04] LABS: INR 1.75 (0.83-1.09); PROTHROMBIN TIME (PATIENT) 19.5 SEC (9.7-13.0)
[2023-11-05 12:08] LABS: HEMATOCRIT 20.3 % (32.4-45.2); MCHC 33.1 g/dl (32.0-36.0); MEAN CELL VOLUME 87.6 fl (80-96); MEAN PLT VOLUME 8.2 fl (7.5-11.1); PLATELET COUNT 109 10^3/uL (134-434); RBC 2.32 M/mm3 (3.60-5.2); RDW 18.3 % (11.6-15.6); WHITE BLOOD COUNT 13.5 K/mm3 (4.0-10.0)
[2023-11-05 12:16] LABS: HEMOGLOBIN 6.7 GM/dL (10.7-15.3)
[2023-11-05 12:18] LABS: POTASSIUM 3.8 mmol/L (3.5-5.1)
[2023-11-05 12:20] LABS: ALBUMIN 1.6 g/dl (3.4-5.0); BLOOD UREA NITROGEN 27.6 mg/dL (7-18); CALCIUM 9.8 mg/dL (8.5-10.1)
[2023-11-05 12:23] LABS: CREATININE 0.5 mg/dL (0.55-1.3)
[2023-11-05 12:25] LABS: BILIRUBIN,TOTAL 1.3 mg/dL (0.2-1); TOT PROT 3.9 g/dl (6.4-8.2)
[2023-11-05] MEDS: FENTANYL PATCH WASTE TD PRN (14:56)
[2023-11-05] MEDS: POTASSIUM CHLORIDE 10 MEQ in AMINO ACIDS 4.25%/D5W 1,000 ML IV SCH (15:51)
[2023-11-05] MEDS: ENOXAPARIN NA (PORCINE) 60 MG/0.6 ML DISP.SYRIN SQ SCH (16:58)
[2023-11-05] MEDS: FUROSEMIDE 40 MG/4 ML INJECTABLE VIAL IVPUSH ONE (22:33)
[2023-11-06 07:25] LABS: HEMATOCRIT 29.9 % (32.4-45.2); HEMOGLOBIN 10.1 GM/dL (10.7-15.3); MCH 28.8 pg (25.7-33.7); MCHC 33.6 g/dl (32.0-36.0); MEAN CELL VOLUME 85.7 fl (80-96); MEAN PLT VOLUME 8.4 fl (7.5-11.1); PLATELET COUNT 119 10^3/uL (134-434); RBC 3.49 M/mm3 (3.60-5.2); WHITE BLOOD COUNT 15.7 K/mm3 (4.0-10.0)
[2023-11-06 07:37] LABS: CALCIUM 9.9 mg/dL (8.5-10.1)
[2023-11-06 07:38] LABS: ALBUMIN 1.8 g/dl (3.4-5.0); BLOOD UREA NITROGEN 26.5 mg/dL (7-18)
[2023-11-06 07:41] LABS: CREATININE 0.6 mg/dL (0.55-1.3)
[2023-11-06 07:43] LABS: BILIRUBIN,TOTAL 3.2 mg/dL (0.2-1); TOT PROT 4.6 g/dl (6.4-8.2)
[2023-11-06] MEDS: LORazepam 2 MG/ML SDV VIAL IVPUSH PRN ×2 (12:25→18:33)
[2023-11-06] MEDS: SCOPOLAMINE HYDROBROMIDE 1 PATCH PATCH.TD72 TD SCH (12:39)
[2023-11-06] MEDS ORDERED: FENTANYL PATCH WASTE TD PRN (16:06)
[2023-11-06] MEDS ORDERED: ACETAMINOPHEN 500 MG TABLET (FP) PO PRN (16:06)
[2023-11-06] MEDS: MORPHINE 100 MG/100 ML MG IVPB SCH ×2 (23:25→23:55)
[2023-11-06] MEDS ORDERED: MORPHINE SULFATE/0.9% NACL/PF 100 MG/100 ML BAG IVPB SCH (23:30)
[2023-11-07] MEDS: NYSTATIN 500,000 UNITS/5 ML SUSPENSION PO SCH (11:54)
[2023-11-07] MEDS: BACITRACIN ZINC 15 GM TUBE TOPICAL OINTMENT TP SCH ×2 (13:28→22:29)
[2023-11-07] MEDS ORDERED: LIDOCAINE VISCOUS 2% ORAL/TOP 100 ML BOTTLE MM PRN (14:00)
[2023-11-07] MEDS: LORazepam 2 MG/ML SDV VIAL IVPUSH ONE (17:54)
[2023-11-07 18:33] VITALS: RESP 18
[2023-11-08] MEDS: fentaNYL 12mcg/hr PATCH.TD72 TD SCH (10:28)
[2023-11-08] MEDS: SCOPOLAMINE HYDROBROMIDE 1 PATCH PATCH.TD72 TD SCH (12:18)
[2023-11-09] MEDS ORDERED: SCOPOLAMINE HYDROBROMIDE 1 PATCH PATCH.TD72 TD SCH (12:30)
[2023-11-09 18:42] VITALS: BP 52/32; PULSE 71; TEMP 97.9
== END 2023-11-09 20:43 | disposition expired | DRG 178 ==
LOC: JER 18:01 → JERBED 21:20 → J5S 09-28 02:34 → OBSVTOIN 09-28 12:13 → JICU 10-06 12:23 → J7W 10-11 17:45 → JICU 10-13 11:07 → J2W 10-21 12:15 → J6S 11-06 15:47
PROVIDERS: ADMIT Internal Medicine; ATTEND Internal Medicine
PROC: XW033E5 Introduction of Remdesivir Anti-infective into Peripheral Vein, Percutaneous Approach, New Technology Group 5 (ICD-10-PCS; principal; 2023-09-27)
PROC: 05HM33Z Insertion of Infusion Device into Right Internal Jugular Vein, Percutaneous Approach (ICD-10-PCS; 2023-09-27)
PROC: B543ZZA Ultrasonography of Right Jugular Veins, Guidance (ICD-10-PCS; 2023-09-27)
PROC: 093K8ZZ Control Bleeding in Nasal Mucosa and Soft Tissue, Via Natural or Artificial Opening Endoscopic (ICD-10-PCS; 2023-10-12)
PROC: 30233N1 Transfusion of Nonautologous Red Blood Cells into Peripheral Vein, Percutaneous Approach (ICD-10-PCS; 2023-10-13)
PROC: 0DJD8ZZ Inspection of Lower Intestinal Tract, Via Natural or Artificial Opening Endoscopic (ICD-10-PCS; 2023-10-14)
DX: U07.1 COVID-19 (principal); F11.20 Opioid dependence, uncomplicated; N17.9 Acute kidney failure, unspecified; K62.5 Hemorrhage of anus and rectum; M25.061 Hemarthrosis, right knee; K82.1 Hydrops of gallbladder; K56.51 Intestinal adhesions [bands], with partial obstruction; K63.3 Ulcer of intestine; I13.0 Hypertensive heart and chronic kidney disease with heart failure and stage 1 through stage 4 chronic kidney disease, or unspecified chronic kidney disease; R45.851 Suicidal ideations; I48.91 Unspecified atrial fibrillation; R79.1 Abnormal coagulation profile; R33.9 Retention of urine, unspecified; R04.0 Epistaxis; T45.515A Adverse effect of anticoagulants, initial encounter; J34.2 Deviated nasal septum; E03.9 Hypothyroidism, unspecified; G89.29 Other chronic pain; E78.5 Hyperlipidemia, unspecified; N18.9 Chronic kidney disease, unspecified; M54.50 Low back pain, unspecified; I50.9 Heart failure, unspecified; M25.461 Effusion, right knee; K57.90 Diverticulosis of intestine, part unspecified, without perforation or abscess without bleeding; Z95.2 Presence of prosthetic heart valve; E87.5 Hyperkalemia; K59.00 Constipation, unspecified; R68.2 Dry mouth, unspecified; J34.89 Other specified disorders of nose and nasal sinuses; Z79.01 Long term (current) use of anticoagulants
CPT/HCPCS: 0241U-QW; 36415; 36430; 36600; 71045-TC-FY; 73564-TC-RT-FY; 74018-TC-FY; 74174-TC; 80048; 80053; 80061; 81003; 82272; 82533; 82728; 82803; 82962; 83540; 83550; 83615; 83735; 84100; 84439; 84443; 84478; 84550; 85025; 85027; 85045; 85610; 85651; 85730; 86140; 86850; 86900; 86901; 86922; 87040; 87086; 87635; 93005; 93010; 94761; 97116-GP; 99285-25; G0378; J0131; J0248; J1100; J1644; J1756; J2597; P9038; P9058; Q9967